=== PATIENT | female | born 1945 | race Caucasian/White ===

== ENCOUNTER → 2016-11-17 | Outpatient (CLI) | payer OTHER ==
[~2016-11-17] MED LIST: ASPI325T39 PO; BCTCR/30 EXT; CALCTAB7 PO; CHOL20007 PO; CITA20TA4 PO; CYAN10005 PO; FSMD/70 PO; GABA-112 PO; GLIM1TAB2 PO; LEVO88TA PO; LOSA50TA6 PO; LOVA20TA4 PO; MAGN400T6 PO; SITA50TA5 PO; TAMO20TA9 PO; TRAM-10 PO
[2016-11-17 13:09] LABS: COMPLETE YES; EOS % 2.2 %; HEMATOCRIT 41.3 % (37-47); IG% 0.2 %; LYMPH % 15.4 %; LYMPH ABS # 0.98 K/uL (1.2-3.4); MEAN CELL VOLUME 87.9 fL (80-100); MEAN CORPUSCULAR HEMOGLOBIN 27.9 pg (25-34); MEAN CORPUSCULAR HGB CONC 31.7 g/dl (32-36); MEAN PLATELET VOLUME 10.5 fL (7.4-10.4); MONO % 6.3 %; NEUT % 75.9 %; PLATELET COUNT 247 K/uL (130-400); WHITE BLOOD COUNT 6.36 K/uL (4.8-10.8)
[2016-11-17 13:20] LABS: ALT/SGPT 24 U/L (12-78); BLOOD UREA NITROGEN 18 mg/dl (7-18); BUN/CREATININE RATIO 23.2 (10-20); CARBON DIOXIDE 27 mmol/L (21-32); CHLORIDE 106 mmol/L (98-107); CREATININE 0.77 mg/dl (0.60-1.20); GLUCOSE 92 mg/dl (70-99); MAGNESIUM 1.7 mg/dl (1.8-2.4); POTASSIUM 4.3 mmol/L (3.5-5.1); SODIUM 139 mmol/L (136-145)
[2016-11-17 13:22] LABS: CALCIUM 10.4 mg/dl (8.5-10.1); CHOLESTEROL/HDL RATIO 2.8
[2016-11-17 13:30] LABS: ALB/GLOB RATIO 0.8 (0.9-2); ALKALINE PHOSPHATASE 49 U/L (45-117); AST/SGOT 14 U/L (15-37)
[2016-11-17 13:39] LABS: ESTIMATED AVERAGE GLUCOSE 146 mg/dl; HA1C FLAG Normal (Normal)
== END | disposition home or self-care (01) ==
LOC: C.LABMFLN 14:49
PROVIDERS: ATTEND Family Medicine
DX: E11.49 Type 2 diabetes mellitus with other diabetic neurological complication (principal); I10 Essential (primary) hypertension; E03.9 Hypothyroidism, unspecified; E53.8 Deficiency of other specified B group vitamins; M81.0 Age-related osteoporosis without current pathological fracture; E83.42 Hypomagnesemia

== ENCOUNTER → 2017-02-17 | Outpatient (CLI) | payer OTHER ==
[~2017-02-17] MED LIST changes: +TAMO20TA47 PO; -TAMO20TA9 PO
[2017-02-18 08:31] LABS: ESTIMATED AVERAGE GLUCOSE 157 mg/dl; HA1C FLAG Normal (Normal)
== END | disposition home or self-care (01) ==
LOC: C.LABMFLN 08:08
PROVIDERS: ATTEND Family Medicine
DX: E11.49 Type 2 diabetes mellitus with other diabetic neurological complication (principal)

== ENCOUNTER → 2017-06-06 | Outpatient (CLI) | payer OTHER ==
[~2017-06-06] MED LIST changes: -TAMO20TA47 PO; +TAMO20TA9 PO
[2017-06-06 12:57] LABS: COMPLETE YES; EOS % 1.8 %; HEMATOCRIT 41.9 % (37-47); IG% 0.2 %; LYMPH ABS # 0.83 K/uL (1.2-3.4); MEAN CELL VOLUME 87.8 fL (80-100); MEAN CORPUSCULAR HEMOGLOBIN 28.1 pg (25-34); MEAN PLATELET VOLUME 10.8 fL (7.4-10.4); MONO % 7.8 %; NEUT % 75.2 %; PLATELET COUNT 226 K/uL (130-400); RED BLOOD COUNT 4.77 M/uL (4.2-5.4); WHITE BLOOD COUNT 5.52 K/uL (4.8-10.8)
[2017-06-06 13:36] LABS: ALT/SGPT 18 U/L (12-78); BLOOD UREA NITROGEN 24 mg/dl (7-18); BUN/CREATININE RATIO 31.2 (10-20); CALCIUM 9.9 mg/dl (8.5-10.1); CARBON DIOXIDE 24 mmol/L (21-32); CHLORIDE 109 mmol/L (98-107); CHOLESTEROL 143 mg/dl (0-200); CREATININE 0.77 mg/dl (0.60-1.20); GLUCOSE 113 mg/dl (70-99); MAGNESIUM 1.5 mg/dl (1.8-2.4); SODIUM 142 mmol/L (136-145); TRIGLYCERIDES 66 mg/dl (0-150); VERY LOW DENSITY LIPOPROT CALC 13 mg/dl
[2017-06-06 13:45] LABS: ALB/GLOB RATIO 0.8 (0.9-2); ALKALINE PHOSPHATASE 50 U/L (45-117); AST/SGOT 16 U/L (15-37); CHOLESTEROL/HDL RATIO 2.8; HDL CHOLESTEROL 51 mg/dl; LDL CHOLESTEROL CALCULATED 79 mg/dl
[2017-06-06 13:50] LABS: ESTIMATED AVERAGE GLUCOSE 154 mg/dl; HA1C FLAG Normal (Normal)
== END | disposition home or self-care (01) ==
LOC: C.LABMFLN 09:12
PROVIDERS: ATTEND Family Medicine
DX: E11.49 Type 2 diabetes mellitus with other diabetic neurological complication (principal); E78.5 Hyperlipidemia, unspecified; E03.9 Hypothyroidism, unspecified; D51.8 Other vitamin B12 deficiency anemias; E83.42 Hypomagnesemia; M81.0 Age-related osteoporosis without current pathological fracture

== ENCOUNTER → 2017-09-20 | Outpatient (CLI) | payer OTHER ==
[2017-09-20 13:21] LABS: HEMOGLOBIN A1C 6.6 % (4.5-5.6)
== END | disposition home or self-care (01) ==
LOC: C.LABMFLN 07:50
PROVIDERS: ATTEND Family Medicine
DX: E11.49 Type 2 diabetes mellitus with other diabetic neurological complication (principal); I10 Essential (primary) hypertension; E53.8 Deficiency of other specified B group vitamins

== ENCOUNTER → 2018-03-02 | Outpatient (CLI) | payer OTHER ==
[2018-03-02 13:36] LABS: BLOOD UREA NITROGEN 18 mg/dl (7-18); CARBON DIOXIDE 28 mmol/L (21-32); CREATININE 0.86 mg/dl (0.60-1.20); GLUCOSE 126 mg/dl (70-99); POTASSIUM 4.2 mmol/L (3.5-5.1); SODIUM 141 mmol/L (136-145)
== END | disposition home or self-care (01) ==
LOC: C.LABMFLN 08:15
PROVIDERS: ATTEND Family Medicine
DX: I10 Essential (primary) hypertension (principal); E03.9 Hypothyroidism, unspecified

== ENCOUNTER 2021-07-21 13:23 | Inpatient (IN) ==
[2021-07-21] MEDS ORDERED: HYDROmorphone INJ 0.5 MG/0.5 ML SYR IV PRN (13:29)
[2021-07-21] MEDS ORDERED: SODIUM CHLORIDE 0.9% 500 ML IV STA (13:29)
[2021-07-21] MEDS ORDERED: ONDANSETRON INJ 2 MG/ML 2 ML VIAL IV STA (13:29)
--- NOTE | 2021-07-21 13:46 | Emergency Department Note ---
Impression & Plan Femoral neck fracture ED Provider Note NAME: RJ CHAMBERLAIN AGE: 75 SEX: F : 1945 ARRIVES VIA: Ambulance INFORMANT: Patient, ED PROVIDER(S): Kike Zepeda DO CHIEF COMPLAINT: Hip pain HPI: The patient is a 75-year-old female who presented to emergency department for an evaluation of left hip pain. The patient was seen in an outside facility. She was excepted at our facility and transferred via ALS because of left hip pain and left hip fracture. The patient was seen by Dr. Avila in the past for a right hip fracture. The patient was initially evaluated at [facility]. She requested to be transferred for our facility. She was accepted and was brought here by ALS. The patient was given Dilaudid and states her pain is significantly improved. I reviewed the patient's transfer paperwork reveals that she has a left femoral neck fracture. The patient states that she has isolated left hip pain. She denies having any back pain or chest pain. She has abdominal pain she denies having any headache or neck pain. The patient states pain is moderate to severe when she tries to ambulate or internally externally rotate her hip. ROS: See above HPI for pertinent positives & negatives. A total of 10 systems reviewed and were otherwise negative. PAST MEDICAL HISTORY: See Below PAST SURGICAL HISTORY: See Below FAMILY HISTORY: See Below SOCIAL HISTORY: See Below HOME MEDICATIONS: See Below ALLERGIES: See Below VITALS: See Below PHYSICAL EXAMINATION: GENERAL: Patient is awake alert in no acute distress patient is resting comfortably and showing no signs of anxiety EYES: The conjunctivae are clear. The pupils are round and reactive. EARS, NOSE, MOUTH AND THROAT: The nose is without any evidence of any deformity. Mucous membranes are moist. Tongue is midline. NECK: The neck is nontender and supple. RESPIRATORY: Normal respiratory effort is noted there is no evidence of wheezing rhonchi or rales CARDIOVASCULAR: Regular rate and rhythm noted there no murmurs rubs or gallops normal S1 normal S2. GASTROINTESTINAL: The abdomen is soft. Abdomen is nontender. MUSCULOSKELETAL/EXTREMITIES: The left lower extremity is mildly shortened. There is pain with any range of motion testing. Pulses are symmetric in both feet. SKIN: There is no obvious evidence of any rash. There are no petechiae, pallor or cyanosis noted. NEUROLOGIC: Patient is awake alert and oriented x3 MEDICAL DECISION MAKING: The patient is a 75-year-old female who presented to emergency department for an evaluation of left hip pain. The patient initially was seen medically in an outside emergency department. She wanted to come to our facility for surgical care because she had been treated in our facility before. The patient was sent to our emergency department by ALS. I did evaluate the patient. She was treated with pain medication. X-rays were repeated here at the request of orthopedics. I discussed her case with the on-call orthopedic group of the patient's choice as well as the on-call [facility] hospitalist. They have ag abdulaziz to evaluate the patient for further management and disposition. Triage Nursing notes reviewed. Prior medical records reviewed Vital Signs: reviewed and remarkable for elevated blood pressure. Differential diagnosis: Fracture, dislocation, neurovascular compromise, compartment syndrome, soft tissue injury, as well as other pathologies. ER treatment provided: See below Diagnostics interpreted by me: ECG: none Cardiac Monitoring: An order was placed for continuous cardiac monitoring. The monitor shows a rate of 81 bpm with sinus rhythm. Laboratory studies: As stated above and show below. Imaging studies: See below Consultation(s): I discussed this case with Dr. Hebert who is on-call for [facility]. They will evaluate the patient in the emergency department. I discussed this case with [place] who is on-call for the orthopedic group of the patient's choice. They will evaluate the patient in consultation for further surgical management. Past Med/Surg History Medical History (Updated 07/21/21 @ 18:40 by Kike Zepeda DO) Breast cancer Cutaneous lupus erythematosus History of colon cancer History of stroke 2007 left sided weakness Hx of adenomatous colonic polyps Sessile colonic polyp Type 2 diabetes mellitus Surgical History History of bowel resection History of cataract surgery History of colonoscopy History of right hip replacement History of tonsillectomy S/P breast biopsy Status post breast lumpectomy bilateral Family History Sister Myocardial infarction Brother Colorectal cancer Father Hypertension Aunt Cancer Denies family history of Ovarian cancer Prostate cancer Breast cancer Social History Smoking Status: Unknown if ever smoked Second Hand Exposure: No; Hx Alcohol Use: Yes Alcohol type: beer and wine Hx Substance Use: Yes Substance Use Type Other:: tramadol Preferred Language: [place] Communication Ability: Effective Visual Impairment: Partially Limited Hearing Ability: Normal Orthodontist Assistant Required: No Beliefs That Will Affect Care: None marital status: / Current Living Situation: Alone current occupational status: retired Feels Safe at Home: Yes Childhood Exposure to Second-Hand Smoke: Yes caffeine: Yes (1 cup daily of coffee) during the past year weight has: remained stable Dental Care, Regularly: No Physical Activity Frequency: Does not Exercise Seatbelt Use: never Sunscreen Use: No Do you think of yourself as: straight/heterosexual Allergies Allergies Allergy/AdvReac Type Severity Reaction Status Date / Time No Known Allergies Allergy Verified 07/21/21 15:24 Home Meds Previous Rx's Medication Instructions Recorded aspirin 325 mg tablet 325 mg PO DAILY #90 tab 02/27/19 cholecalciferol (vitamin D3) 50 4,000 units PO DAILY #180 cap 02/27/19 mcg (2,000 unit) capsule cyanocobalamin (vitamin B-12) 1,000 mcg PO DAILY #90 tab 02/27/19 1,000 mcg tablet triamcinolone acetonide 0.1 % 1 appln TOP BID PRN #80 gm 10/21/19 topical cream gabapentin 100 mg capsule 100 mg PO BID #180 cap 05/07/20 glimepiride 1 mg tablet 1 mg PO .COMPLEX #270 tab 07/01/20 linagliptin 2.5 mg-metformin 1,000 1 tab PO BID #180 tab 10/21/20 mg tablet levothyroxine 100 mcg tablet 100 mcg PO DAILY #90 tab 02/05/21 citalopram 40 mg tablet 40 mg PO DAILY #90 tab 04/19/21 tramadol 50 mg tablet 50 mg PO Q6H PRN #120 tab 05/18/21 lovastatin 20 mg tablet 20 mg PO HS #90 tab 05/31/21 metoprolol succinate 25 mg 25 mg PO DAILY #90 tab 05/31/21 tablet,extended release 24 hr Results & Data (ED) Vital Signs Vital Signs - 24 hr 07/21/21 13:21 07/21/21 13:30 07/21/21 15:41 Temperature 37.4 C Temperature Source Oral Pulse Rate 79 78 Pulse Rate [Apical] Respiratory Rate 18 18 18 Respiratory Effort / Characteristics Non-Labored Respiratory Depth Normal Respiratory Pattern Regular Blood Pressure 177/83 H 184/103 H Blood Pressure [Left Arm] Blood Pressure Mean 114 Blood Pressure Mean [Left Arm] Blood Pressure Position Lying Pulse Oximetry 93 93 93 Oxygen Delivery Method Room Air Room Air Room Air Sepsis Recent Fever Within 48 Hours No Sepsis New/Unexplained Change in Mental Status N/A Sepsis Action Taken by Nursing No Action Required 07/21/21 16:22 Temperature 37.2 C Temperature Source Oral Pulse Rate Pulse Rate [Apical] 81 Respiratory Rate 17 Respiratory Effort / Characteristics Non-Labored Spontaneous Respiratory Depth Normal Respiratory Pattern Blood Pressure Blood Pressure [Left Arm] 184/103 H Blood Pressure Mean Blood Pressure Mean [Left Arm] 130 Blood Pressure Position Pulse Oximetry 94 Oxygen Delivery Method Sepsis Recent Fever Within 48 Hours Sepsis New/Unexplained Change in Mental Status Sepsis Action Taken by Usp Medications Current Medication List: was personally reviewed by me Laboratory Data Attestation: I reviewed the patient's lab results. Lab Results 07/21/21 Range/Units 15:59 POC Glucose 113 H (70-99) mg/dl Administered Medications Discontinued Medications Bupivacaine HCl (Bupivacaine 0.25% 30 Ml Vial) Confirm Administered Dose 30 ml .ROUTE .STK-MED ONE Stop: 07/21/21 16:42 Last Admin: 07/21/21 18:15 Dose: 30 ml Documented by: [id number] Sodium Chloride (Nss) 500 mls @ 999 mls/hr IV .Q31M STA Stop: 07/21/21 13:59 Last Infusion: 07/21/21 14:31 Dose: 0 mls/hr Documented by: [id number] Admin: 07/21/21 13:43 Dose: 999 mls/hr Documented by: [id number] Cefazolin Sodium (Ancef 2000mg) 2,000 mg in 15 mls @ 3.75 mls/min IV PREOP ONE Stop: 07/21/21 16:18 Last Admin: 07/21/21 16:29 Dose: 3.75 mls/min Documented by: [id number] Ondansetron HCl (Ondansetron Inj 2 Mg/Ml 2 Ml Vial) 4 mg IV NOW STA Stop: 07/21/21 13:30 Last Admin: 07/21/21 14:31 Dose: Not Given Documented by: [id number] Imaging Data Radiologist's Impression: Hip/Pelvis X-Ray 07/21/21 13:53 XR hip LT 2V w pelvis CLINICAL HISTORY: fall TECHNIQUE: 2 views of the left hip and single frontal view of the pelvis were obtained. Comparison: None available at the time of this dictation. FINDINGS: There is a fracture of the left femoral neck, likely with an intertrochanteric component. Overriding of fragments is noted. A right total hip arthroplasty is seen. The alignment is anatomic. Joint spaces are well-preserved. No soft tissue abnormality is seen. IMPRESSION: Left femoral neck fracture. ACT 112: Negative or not required by law. Electronically signed by: Delta Lopez M.D. 07/21/2021 2:56 PM Discharge Plan Visit Data Chief Complaint: Hip Pain Stated Complaint: TRANSFER FROM [facility] ED Provider: Kike Zepeda Discharge Problem: Femoral neck fracture Patient Disposition: Being Evaluated by Hospitalist Discharge Instructions Interventions: ED Discharge Assessment Last Done: 07/21/21 15:41
--- NOTE | 2021-07-21 14:17 | History & Physical Report ---
Date of Service July 21, 2021 Assessment & Plan (1) Closed left hip fracture: Plan: pt with left femoral neck fracture will have surgical evaluation for repair. Patient has her prehospital work-up done at [facility] hopefully will have a chest x-ray and EKG to review prior to the procedure however at this time she does not have any significant cardiovascular risk factors nor physical complaints and she would BX acceptable operative risk at this time for repair of her hip fracture (2) Type 2 diabetes mellitus: Plan: will have oral medication held and have on basal bolus insulin (3) Hypertension: Plan: pt will continue on metoprolol and consider holding losartan on pod #1, resume later once hemodynamically stable (4) Depression: Plan: pt will continue on citaloparm (5) Hypothyroidism: Plan: synthroid 100mcg (6) Cutaneous lupus erythematosus: Plan: on topical steroids (7) DVT prophylaxis: Plan: scds until post operative stabilty History of Present Illness Primary Care Provider: Juanjo Connor MD 75-year-old female who is a transfer from [place] [facility] after evaluation of fall and left hip pain with a resultant fracture. Patient requested to come to [facility] due to previously repaired hip fracture by [facility]. Patient's pain is controlled when she is not moving. The ER evaluation suggest left femoral neck fracture. She is externally rotated and shortened with regard to her left leg. She denies any recent chest pain pressure shortness of breath feelings of palpitations or feelings of lower extremity edema. Has had no issues with increased bleeding bruising or lower extremity swelling Allergies Allergy/AdvReac Type Severity Reaction Status Date / Time No Known Allergies Allergy Verified 07/21/21 15:24 Home Medications Medication Instructions Recorded Confirmed Type aspirin 325 mg tablet 325 mg PO DAILY #90 tab 02/27/19 07/21/21 Rx cholecalciferol (vitamin D3) 50 4,000 units PO DAILY #180 cap 02/27/19 07/21/21 Rx mcg (2,000 unit) capsule cyanocobalamin (vitamin B-12) 1,000 mcg PO DAILY #90 tab 02/27/19 07/21/21 Rx 1,000 mcg tablet triamcinolone acetonide 0.1 % 1 appln TOP BID PRN #80 gm 10/21/19 07/21/21 Rx topical cream gabapentin 100 mg capsule 100 mg PO BID #180 cap 10/29/20 01/12/22 Rx glimepiride 1 mg tablet 1 mg PO .COMPLEX #270 tab 07/01/20 07/21/21 Rx linagliptin 2.5 mg-metformin 1,000 1 tab PO BID #180 tab 10/21/20 07/21/21 Rx mg tablet levothyroxine 100 mcg tablet 100 mcg PO DAILY #90 tab 02/05/21 07/21/21 Rx citalopram 40 mg tablet 40 mg PO DAILY #90 tab 04/19/21 07/21/21 Rx tramadol 50 mg tablet 50 mg PO Q6H PRN #120 tab 05/18/21 07/21/21 Rx lovastatin 20 mg tablet 20 mg PO HS #90 tab 05/31/21 07/21/21 Rx metoprolol succinate 25 mg 25 mg PO DAILY #90 tab 05/31/21 07/21/21 Rx tablet,extended release 24 hr Past Med/Surg History Medical History (Updated 07/21/21 @ 18:40 by Kike Zepeda DO) Breast cancer Cutaneous lupus erythematosus History of colon cancer History of stroke 2007 left sided weakness Hx of adenomatous colonic polyps Sessile colonic polyp Type 2 diabetes mellitus Surgical History History of bowel resection History of cataract surgery History of colonoscopy History of right hip replacement History of tonsillectomy S/P breast biopsy Status post breast lumpectomy bilateral Family History Sister Myocardial infarction Brother Colorectal cancer Father Hypertension Aunt Cancer Denies family history of Ovarian cancer Prostate cancer Breast cancer Social History Smoking Status: Unknown if ever smoked Second Hand Exposure: No; Hx Alcohol Use: Yes Alcohol type: beer and wine Hx Substance Use: Yes Substance Use Type Other:: tramadol Preferred Language: Uz[place] Communication Ability: Effective Visual Impairment: Partially Limited Hearing Ability: Normal 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 Beliefs That Will Affect Care: None marital status: / Current Living Situation: Alone current occupational status: retired Feels Safe at Home: Yes Childhood Exposure to Second-Hand Smoke: Yes caffeine: Yes (1 cup daily of coffee) during the past year weight has: remained stable Dental Care, Regularly: No Physical Activity Frequency: Does not Exercise Seatbelt Use: never Sunscreen Use: No Do you think of yourself as: straight/heterosexual Review of Systems Review of Systems: Mild to moderate distress and fatigue no headache, no visual changes no speech or swallowing issues no chest pain, pressure or palpitations no shortness of breath, cough or wheezes no abdominal pain, nausea or vomiting, diarrhea or constipation no dysuria, hematuria or frequency Pain to her left lateral hip no back pain, CVA tenderness or radicular pain no bruising, bleeding does have intertrigo below her pannus no focal signs of weakness or numbness or altered sensation no complaints of anxiety or depression.. Physical Exam Physical Exam: The patient appeared well nourished and normally developed. She is in pain with movement Vital signs as documented. Head exam is normocephalic atraumatic Neck is without JVD, thyromegaly, or carotid bruits. Lungs are clear to auscultation, no focal loss of breath sounds Cardiac exam, Rhythm is regular.. No murmurs, rubs or gallops. Abdominal exam reveals normal bowel sounds, soft non tender, no masses Extremities she is a externally rotated shortened left leg good distal sensation intact Neurologic exam is alert and oriented, no focal loss of strength or sensation Skin is without bruises or rashes Psychologically is without concerns for anxiety or depression.. Results & Data Results & Data ([facility]) Vital Signs (Past 12 Hours) Vital Signs Temp Pulse Resp BP Pulse Ox 07/21/21 13:30 18 93 07/21/21 13:21 99.3 F 79 18 177/83 H 93 PG Care Time/CCT Total # of Minutes Spent Total Time Spent with Patient: Total time spent is greater than 50% in coordination of care (as documented) at patient's floor/unit and/or counseling patient: Coding Level of Care Code 98402 Initial Inpt Care Lvl 3 Diagnoses Type 2 diabetes mellitus E11.9 Cutaneous lupus erythematosus L93.2 Depression F32.9 Hypothyroidism E03.9 Hypertension I10 DVT prophylaxis Z29.9 Closed left hip fracture S72.002A
--- NOTE | 2021-07-21 14:57 | XRay Report ---
XR hip LT 2V w pelvis CLINICAL HISTORY: fall TECHNIQUE: 2 views of the left hip and single frontal view of the pelvis were obtained. Comparison: None available at the time of this dictation. FINDINGS: There is a fracture of the left femoral neck, likely with an intertrochanteric component. Overriding of fragments is noted. A right total hip arthroplasty is seen. The alignment is anatomic. Joint space s are well-preserved. No soft tissue abnormality is seen. IMPRESSION: Left femoral neck fracture. ACT 112: Negative or not required by law. Electronically signed by: Delta Lopez M.D. 07/21/2021 2:56 PM
--- NOTE | 2021-07-21 15:34 | Orthopedic Consultation ---
Date of Consultation July 21, 2021 Assessment & Plan (1) Closed left hip fracture: Left displaced femoral neck fracture Case has been discussed with Dr. Hebert who is admitting the patient. He states that the patient is stable for surgery at this time. Her COVID test was negative at [facility]. X-rays have been reviewed by Dr. Garcia. Patient will require a bipolar hemiarthroplasty. Plans will be for hemiarthroplasty today. History of Present Illness Reason for Consultation: Left femoral neck fracture History of Present Illness Patient is a 75-year-old white female known to our practice who ended up having a mechanical fall today at home. Patient states that as she was ambulating it felt like her left leg gave out and she fell to the floor. She denies any shortness of breath, chest pain, lightheadedness prior to or after the fall. She denies bumping her head during the fall. She denies loss of consciousness. She was initially transported to [facility] where it was found that she had a left hip fracture patient requested transfer to [facility] for further treatment. She was then transported to [facility] ED where she was seen by [facility] physician group hospitalist staff. No x- rays had come with her and a hip and pelvis film was ordered. This confirmed fracture. She was thusly admitted for further care. We have been asked to take care of her left hip fracture. In speaking with her son, who is with her, he states that she had a CVA at some point in the past with some residual weakness in her left lower extremity. Allergies Allergy/AdvReac Type Severity Reaction Status Date / Time No Known Allergies Allergy Verified 07/21/21 15:24 Home Medications Medication Instructions Recorded Confirmed Type aspirin 325 mg tablet 325 mg PO DAILY #90 tab 02/27/19 07/21/21 Rx cholecalciferol (vitamin D3) 50 4,000 units PO DAILY #180 cap 02/27/19 07/21/21 Rx mcg (2,000 unit) capsule cyanocobalamin (vitamin B-12) 1,000 mcg PO DAILY #90 tab 02/27/19 07/21/21 Rx 1,000 mcg tablet triamcinolone acetonide 0.1 % 1 appln TOP BID PRN #80 gm 10/21/19 07/21/21 Rx topical cream gabapentin 100 mg capsule 100 mg PO BID #180 cap 05/07/20 07/21/21 Rx glimepiride 1 mg tablet 1 mg PO .COMPLEX #270 tab 07/01/20 06/17/21 Rx linagliptin 2.5 mg-metformin 1,000 1 tab PO BID #180 tab 10/21/20 07/21/21 Rx mg tablet levothyroxine 100 mcg tablet 100 mcg PO DAILY #90 tab 02/05/21 07/21/21 Rx citalopram 40 mg tablet 40 mg PO DAILY #90 tab 04/19/21 07/21/21 Rx tramadol 50 mg tablet 50 mg PO Q6H PRN #120 tab 05/18/21 07/21/21 Rx lovastatin 20 mg tablet 20 mg PO HS #90 tab 05/31/21 07/21/21 Rx metoprolol succinate 25 mg 25 mg PO DAILY #90 tab 05/31/21 07/21/21 Rx tablet,extended release 24 hr Patient History Medical History Cutaneous lupus erythematosus History of colon cancer History of stroke Hx of adenomatous colonic polyps Medicare annual wellness visit, subsequent Sessile colonic polyp Surgical History History of bowel resection History of cataract surgery History of colonoscopy History of right hip replacement History of tonsillectomy S/P breast biopsy Status post breast lumpectomy bilateral Family History Sister Myocardial infarction Brother Colorectal cancer Father Hypertension Aunt Cancer Denies family history of Ovarian cancer Prostate cancer Breast cancer Social History Smoking Status: Unknown if ever smoked Second Hand Exposure: No; Hx Alcohol Use: Yes Alcohol type: beer and wine Hx Substance Use: Yes Substance Use Type Other:: tramadol Preferred Language: [place] Communication Ability: Effective Visual Impairment: Partially Limited Hearing Ability: Normal Dross Puller Required: No Beliefs That Will Affect Care: None marital status: / Current Living Situation: Alone current occupational status: retired Feels Safe at Home: Yes Childhood Exposure to Second-Hand Smoke: Yes caffeine: Yes (1 cup daily of coffee) during the past year weight has: remained stable Dental Care, Regularly: No Physical Activity Frequency: Does not Exercise Seatbelt Use: never Sunscreen Use: No Do you think of yourself as: straight/heterosexual Physical Exam Physical Exam: On exam, the patient is a 75-year-old obese, white female who is awake and alert. Oriented x3. Pleasant cooperative. No acute distress. On examination of her left lower extremity, it is mildly shortened and externally rotated compared to the right. No range of motion is done with the left hip secondary to fracture. She is nontender at the left knee as well as ankle. She has good range of motion of her left ankle at this time without discomfort. There is no overt ecchymosis or abrasions noted over the lateral hip and she is mildly tender on palpation. Right lower extremity is within normal limits as far as range of motion and is nontender at the hip, knee, and ankle. Upper extremities are nontender at the shoulders, elbows, and wrists. Range of motion appears to be within normal limits. Distal pulses are equal lat erally of the upper and lower extremities. There is no gross motor or sensory loss seen at this time. She denies any cervical, thoracic, lumbar pain at this time. Results & Data ([facility]) Vital Signs (Past 12 Hours) Vital Signs Temp Pulse Resp BP Pulse Ox 07/21/21 13:30 18 93 07/21/21 13:21 37.4 C 79 18 177/83 H 93 Diagnostic Findings Patient:RJ CHAMBERLAIN Admit Date:07/21/21 MR#:[id number] Address1:[address] [place] [address] Acct ID:[id number] Address2: Date:1945 [facility] Zip:[place] [address] Age:75 Location:ED Sex:F Room/Bed: Att Phy: Diagnosis:TRANSFER FROM [facility] Phy:Juanjo Connor MD Service Date:07/21/21 [facility] Phy: Interpreting Phy:Delta Lopez MDAdmit Phy: Ordering Phy:Kike Zepeda DO cc: ~ XR hip LT 2V w pelvis CLINICAL HISTORY: fall TECHNIQUE: 2 views of the left hip and single frontal view of the pelvis were obtained. Comparison: None available at the time of this dictation. FINDINGS: There is a fracture of the left femoral neck, likely with an intertrochanteric component. Overriding of fragments is noted. A right total hip arthroplasty is seen. The alignment is anatomic. Joint spaces are well-preserved. No soft tissue abnormality is seen. IMPRESSION: Left femoral neck fracture.
[2021-07-21] MEDS ORDERED: MIDAZOLAM HCL 1 MG/ML 2ML VIAL ONE (15:55)
[2021-07-21] MEDS ORDERED: fentaNYL citrate 100 MCG/2 ML VIAL ONE (15:56)
--- NOTE | 2021-07-21 16:00 | Anesthesiology Consultation ---
Date of Service July 21, 2021 Assessment & Plan (1) Encounter for pre-operative examination: Chart Review Chart Review: Acceptable Risk for Surgery (necessary surgery) and Patient NOT seen in Pre Admission Testing Consults Requested none History Surgery Operation Date: 07/21/21 08:20 Proposed Procedures p Left Bipolar Hemiarthroplasty - Christian Garcia DO Height/Weight Height: 5 ft 5 in Weight: 118.8 kg Allergies Allergy/AdvReac Type Severity Reaction Status Date / Time No Known Allergies Allergy Verified 07/21/21 15:24 Medications Home Medications Medication Instructions Recorded Confirmed Last Taken aspirin 325 mg tablet 325 mg PO DAILY #90 tab 02/27/19 07/21/21 Unknown cholecalciferol (vitamin D3) 50 4,000 units PO DAILY #180 cap 02/27/19 07/21/21 Unknown mcg (2,000 unit) capsule cyanocobalamin (vitamin B-12) 1,000 mcg PO DAILY #90 tab 02/27/19 07/21/21 Unknown 1,000 mcg tablet triamcinolone acetonide 0.1 % 1 appln TOP BID PRN #80 gm 10/21/19 07/21/21 Unknown topical cream gabapentin 100 mg capsule 100 mg PO BID #180 cap 05/07/20 07/21/21 Unknown glimepiride 1 mg tablet 1 mg PO .COMPLEX #270 tab 07/01/20 07/21/21 Unknown linagliptin 2.5 mg-metformin 1,000 1 tab PO BID #180 tab 10/21/20 07/21/21 Unknown mg tablet levothyroxine 100 mcg tablet 100 mcg PO DAILY #90 tab 02/05/21 07/21/21 Unknown citalopram 40 mg tablet 40 mg PO DAILY #90 tab 04/19/21 07/21/21 Unknown tramadol 50 mg tablet 50 mg PO Q6H PRN #120 tab 05/18/21 07/21/21 Unknown lovastatin 20 mg tablet 20 mg PO HS #90 tab 05/31/21 07/21/21 Unknown metoprolol succinate 25 mg 25 mg PO DAILY #90 tab 05/31/21 07/21/21 Unknown tablet,extended release 24 hr Past Medical History Medical History (Updated 07/21/21 @ 16:25 by Elliot Small MD) Breast cancer Cutaneous lupus erythematosus History of colon cancer History of stroke 2007 left sided weakness Hx of adenomatous colonic polyps Sessile colonic polyp Type 2 diabetes mellitus Past Family History Family History Sister Myocardial infarction Brother Colorectal cancer Father Hypertension Aunt Cancer Denies family history of Ovarian cancer Prostate cancer Breast cancer Past Surgical History Surgical History History of bowel resection History of cataract surgery History of colonoscopy History of right hip replacement History of tonsillectomy S/P breast biopsy Status post breast lumpectomy bilateral Social History Smoking Status: Unknown if ever smoked Hx Alcohol Use: Yes Alcohol type: beer and wine Hx Substance Use: Yes substance use type: opiates and prescription drug Substance Use Type Other:: tramadol Physical Exam Vital Signs Last Vital Signs Temp 37.4 C 07/21/21 13:21 Pulse 78 07/21/21 15:41 Resp 18 07/21/21 15:41 BP 184/103 H 07/21/21 15:41 Pulse Ox 93 07/21/21 15:41 Testing Laboratory Results Labs from [facility] 07/21/21 Covid 19 negative WBC 6.71 Hgb 13.3 Plt 20 INR 1.22 BUN 17 Cr 0.8 NA 140 K 4.2 Cl 104 CO2 25 AG 11 gluocse 148 Ca 10 Electrocardiogram Date: 07/21/21 Findings: + NSR @ (78) and + NSST changes Chest X-Ray Date: 07/21/21 tortuous thoracic aorta, mild prominence left hilum, 5 mm left upper lung nodule, calcified 2.8 cm lesion over left breast tissue
[2021-07-21] MEDS ORDERED: LIDOCAINE 2% 2 ML VIAL/AMP(20MG/ML) INFIL ONE (16:01)
[2021-07-21] MEDS ORDERED: PROPOFOL IV EMULSION 10 MG/ML 20 ML VIAL IV ONE (16:01)
[2021-07-21] MEDS ORDERED: ePHEDrine sulfate 50 MG/ML SYR ONE (16:01)
[2021-07-21] MEDS ORDERED: LABETALOL HCL IV 5 MG/ML 20ML IV PRN (16:05)
[2021-07-21] MEDS ORDERED: HYDROmorphone INJ 1 MG/ML SYRINGE IV PRN (16:05)
[2021-07-21] MEDS ORDERED: fentaNYL citrate 100 MCG/2 ML VIAL IV PRN (16:05)
[2021-07-21] MEDS ORDERED: BUPIVACAINE 0.5 % 5 MG/1 ML PF 10ML VIAL ONE (16:05)
[2021-07-21] MEDS ORDERED: ONDANSETRON INJ 2 MG/ML 2 ML VIAL IV PRN ×2 (16:05→20:18)
[2021-07-21] MEDS ORDERED: ePHEDrine sulfate 50 MG/ML AMP IV PRN (16:05)
[2021-07-21] MEDS ORDERED: MEPERIDINE HCL 25 MG/ML CARP/VIAL IV PRN (16:05)
[2021-07-21] MEDS ORDERED: ATROPINE SULFATE 0.1 MG/ML 10ML SYR IV PRN (16:05)
[2021-07-21] MEDS ORDERED: PHENYLEPHRINE 100MCG/ML 5ML SYR IV PRN (16:05)
[2021-07-21] MEDS ORDERED: ceFAZolin 2000MG 2,000 MG/15 ML SYR IV ONE (16:15)
--- NOTE | 2021-07-21 16:15 | History & Physical Bridge Note ---
Date of Service July 21, 2021 History & Physical Bridge Note I have examined the patient, reviewed the History & Physical and in the interval since the performance of the History & Physical I have noted the following changes of clinical significance: no changes noted. Discussed with patient and her son risk benefits potential complications of left hip hemiarthroplasty and they are in agreement with the procedure and written consent was obtained. We will plan for OR this afternoon.
[2021-07-21] MEDS ORDERED: BUPIVACAINE 0.25% 30 ML VIAL ONE (16:41)
--- NOTE | 2021-07-21 18:04 | Post Operative Brief Note ---
Immediate Post Op Note v1 Date of Surgery July 21, 2021 Pre & Post Diagnosis Operation Date: 07/21/21 08:20 Pre-Op Diagnosis: Left displaced femoral neck fracture Post-Op Diagnosis: Left displaced femoral neck fracture I identified the patient and participated in the time-out.: Yes Procedure Operation Date: 07/21/21 08:20 Actual Procedures p Left Hip Bipolar Hemiarthroplasty(Left) - Christian Garcia DO Surgeon Christian Garcia DO Service Team Leader German Comer PAC Estimated Blood Loss 100 Findings Consistent with Post-Op Diagnosis See dictation Complications None
--- NOTE | 2021-07-21 18:14 | Operative Report ---
Post Operative Report Pre & Post Diagnosis Operation Date: 07/21/21 08:20 Pre-Op Diagnosis: Left displaced femoral neck fracture Post-Op Diagnosis: Left displaced femoral neck fracture I identified the patient and participated in the time-out.: Yes Procedure Operation Date: 07/21/21 08:20 Actual Procedures p Left Hip Bipolar Hemiarthroplasty(Left) - Christian Garcia DO Surgeon Christian Garcia DO Keyboard Operator German Comer PAC Estimated Blood Loss 100 Findings Consistent with Post-Op Diagnosis Displaced left transcervical femoral neck fracture Specimens Femoral neck Indications 75-year-old female who presented to [facility] as a transfer from [facility] after sustaining a ground-level fall onto her left hip. Immediately afterward she noted pain and deformity and was unable to ambulate. Radiographs were obtained demonstrating a completely displaced left transcervica l femoral neck fracture. Preoperatively I met with the patient and we do lengthy discussion regarding risk benefits potential complications of left hip hemiarthroplasty. After reviewing these she elected to proceed with surgical intervention and written consent was obtained. Description of Procedure Due to the patient's morbid obesity additional time was spent positioning as well as with surgical exposure and retraction leading to increased operative time and requiring extra assistance. Patient was appropriately marked and identified in the preoperative holding area. She was then taken back to the operative suite where she received Ancef per protocol. She received spinal anesthesia and then was transferred over to the regular OR table where she was positioned in the lateral decubitus position with the left hip facing upwards using Stulberg positioners. She was then prepped and draped in the standard orthopedic fashion and timeout was then performed. A posterior lateral incision overlying the greater trochanter was then made using a scalpel. Electrocautery was used to dissect through subcutaneous tissue down to the IT band and gluteal fascia which was cleared using a Burr elevator. Fascia was then split in line with the incision and a Charnley retractor was placed. Double bent Hohmann was then placed under the gluteus medius and minimus tendon complex. Short external rotators and piriformis were identified and tagged and then reflected off the posterior capsule. A T capsulotomy was then performed and a gush of intra capsular hematoma was noted. The hip was then internally rotated leaving the residual femoral head and the acetabular socket. A femoral neck osteotomy was then made using a reciprocating saw approximately 1 cm above the tip of the lesser trochanter. Any residual neck fragments were then removed. Tension was then turned to removal of the femoral head which was removed using a corkscrew and a sled. The femoral head was then sized on the back table and trialing a femoral head components was then performed a 49 mm outside diameter head was noted to have good suction fit and stability. Retractors were then removed and femoral neck elevator was placed and a box osteotome was used to open the proximal aspect of the canal followed by a canal finding reamer. The canal was then sequentially broached up to a size #6 stem which had good fit and fill. A 127 degree neck angle was then placed and a 49 mm -3 bipolar femoral head the hip was successfully reduced. Leg lengths were noted to be satisfactory as well as range of motion and stability. The hip was then dislocated and trial components were then removed. Wound was then soaked with dilute Betadine solution for several minutes then then was copiously irrigated. A [place] Accolade 127 degree neck angle size #6 stem was then impacted into the femoral canal under visualization of the calcar. The trunnion was then copiously irrig ated and dried and a 49 mm universal bipolar femoral head component with a -3 mm offset was then impacted onto the trunnion with several brisk taps. Acetabulum was once again copiously irrigated and checked that there was no interposing bone fragments or soft tissue and the hip was successfully relocated. Once again range of motion stability and leg lengths were all assessed and noted to be satisfactory. Wound was then copiously irrigated and the capsule was closed in a [id number] fashion using a 1-0 Ethibond suture. Piriformis was then repaired back to the tip of the trochanter using a soft tissue repair with a 1-0 Ethibond suture. The IT band and gluteal fascia was then closed in a [id number] fashion using 1-0 Ethibond followed by running oh V-Loc suture to provide a watertight closure. Local anesthetic was then injected into the IT band and surrounding subcutaneous tissue. Subcutaneous tissue was then closed using 2-0 Vicryl suture followed by ganesh for the skin. Skin was then painted with a ChloraPrep applicator and a sterile Silverlon dressing was then placed. The patient tolerated the procedure well and was taken to the recovery room in hemodynamically stable condition. German Comer PAC was present and assisted with patient positioning as well as retraction soft tissue management as well as closure. I attest to the content of the Intraoperative Record and any orders documented therein. Any exceptions are noted below.
--- NOTE | 2021-07-21 19:00 | XRay Report ---
XR hip 1V LT w pelvis HISTORY: 75 years-old Female IN PACU - A/P PELVIS and LATERAL HIP left hip total joint arthroplasty COMPARISON: Pelvis and hip radiographs of same day at 2:22 PM TECHNIQUE: Supine AP view of the pelvis with crosstable lateral view of the left hip FINDINGS: Right hip total joint arthroplasty with adjacent heterotopic ossifications redemonstrated. Left hip t otal joint arthroplasty appears to be in satisfactory positioning. Extensive postoperative soft tissu e swelling with deep tissue air an overlying skin ganesh. Arterial calcifications. No acute fracture or unexpected opaque foreign body identified. IMPRESSION: Left hip total joint arthroplasty with expected postoperative changes. ACT 112: Negative or not required by law. The above report was generated using voice recognition software. It may contain grammatical, syntax o r spelling errors. Electronically signed by: Christian Centeno M.D. 07/21/2021 6:58 PM
--- NOTE | 2021-07-21 19:06 | XRay Report ---
XR chest 1V portable HISTORY: 75 years-old Female pre op preoperative exam. No acute chest complaints. Left hip total hortencia nt arthroplasty COMPARISON: Chest radiograph 10/15/2013 TECHNIQUE: Supine AP view of the chest FINDINGS: Unchanged right hilar/suprahilar opacity which is stable from the 2014 comparison and possibly repres entative of asymmetric pulmonary vasculature. Mild chronic interstitial coarsening. No pneumothorax, large pleural effusion or overt pulmonary edema. Cardiomegaly. Degenerative changes of the shoulders and spine. A biopsy clip projects of the left breast with a 2.5 cm peripherally calcified structure. Surgical clips also project over the right axilla. IMPRESSION: Chronic findings as above without acute process. ACT 112: Negative or not required by law. The above report was generated using voice recognition software. It may contain grammatical, syntax o r spelling errors. Electronically signed by: Christian Centeno M.D. 07/21/2021 7:04 PM
--- NOTE | 2021-07-21 20:01 | Anesthesiology Progress Note ---
Date of Service July 21, 2021 Anesthesia Post Procedure Vital Signs Vital Signs: Temp Pulse Pulse Resp BP BP Pulse Ox 07/21/21 19:30 81 18 149/75 H 93 07/21/21 19:20 80 20 131/68 93 07/21/21 19:10 85 22 126/80 94 07/21/21 19:00 36.5 C 85 16 131/76 94 07/21/21 18:50 85 20 133/75 98 07/21/21 18:40 82 20 133/66 100 07/21/21 18:30 36.5 C 82 20 117/65 100 07/21/21 16:22 37.2 C 81 17 184/103 H 94 07/21/21 15:41 78 18 184/103 H 93 07/21/21 13:30 18 93 07/21/21 13:21 37.4 C 79 18 177/83 H 93 Pain Intensity Left Hip: Pain Intensity: 1 Transfer of Care Handoff Completed per policy Notes Mental Status: alert / awake / arousable and participated in evaluation Patient Amnestic to Procedure: Yes Nausea / Vomiting: adequately controlled Pain: adequately controlled Airway Patency, RR, SpO2: stable & adequate BP & HR: stable & adequate Hydration State: stable & adequate Anesthetic Complications: no major complications apparent and Pt Satisfied with anesthetic care
[2021-07-21] MEDS ORDERED: GLUCAGON FOR INJ 1 MG VIAL SQ PRN (20:18)
[2021-07-21] MEDS ORDERED: CARBOHYDRATES FOR HYPOGLYCEMIA PO PRN (20:18)
[2021-07-21] MEDS ORDERED: LACTATED RINGER'S 1,000 ML IV SCH (20:18)
[2021-07-21] MEDS ORDERED: SODIUM CHLORIDE 0.9% 1000ML 1,000 ML IV SCH (20:18)
[2021-07-21] MEDS ORDERED: GLUCOSE 10 TABS/TUBE PO PRN (20:18)
[2021-07-21] MEDS ORDERED: ACETAMINOPHEN 325 MG TAB PO PRN (20:18)
[2021-07-21] MEDS ORDERED: ALUMINUM/MAGNESIUM SUSP 30 ML UDC PO PRN (20:18)
[2021-07-21] MEDS ORDERED: bisacodyL 10 MG SUPP PR PRN (20:18)
[2021-07-21] MEDS ORDERED: DESONIDE CR 15 GM TUBE EXT PRN (20:18)
[2021-07-21] MEDS ORDERED: DEXTROSE 50% 50 ML SYRINGE IV PRN (20:18)
[2021-07-21] MEDS ORDERED: NALOXONE HCL 0.4 MG/1 ML VIAL/CARP IV PRN ×2 (20:18)
[2021-07-21] MEDS ORDERED: GLUCOSE 40% GEL 15 GM TUBE PO PRN (20:18)
[2021-07-21] MEDS ORDERED: MAGNESIUM HYDROXIDE SUSP 30 ML UDC PO PRN (20:18)
[2021-07-21] MEDS ORDERED: oxyCODONE HCL IR 5 MG TAB (IMMEDIATE RELEASE) PO PRN ×2 (20:18)
[2021-07-21] MEDS ORDERED: TRANEXAMIC ACID / 0.7% NACL 1,000 MG/100 ML BAG IV SCH ×2 (20:30→21:00)
[2021-07-21] MEDS ORDERED: ceFAZolin 2000MG 2,000 MG/15 ML SYR IV SCH (20:30)
[2021-07-21] MEDS ORDERED: SENNA 8.6 MG TAB PO SCH (21:00)
[2021-07-21] MEDS ORDERED: DOCUSATE SODIUM 100 MG CAP PO SCH (21:00)
[2021-07-21] MEDS: LOVASTATIN 20 MG TAB PO SCH (21:29)
[2021-07-21] MEDS: DOCUSATE SODIUM/SENNA 50/8.6MG TAB PO SCH (21:29)
[2021-07-21] MEDS: GABAPENTIN 100 MG CAP PO SCH (21:29)
[2021-07-21] MEDS: ACETAMINOPHEN 500 MG TAB PO SCH (21:30)
[2021-07-21] MEDS: HYDROmorphone INJ 0.5 MG/0.5 ML SYR IV PRN (21:32)
[2021-07-21] MEDS: INSULIN ASPART PER UNIT SC SCH ×2 (22:28→22:35)
[2021-07-22] MEDS: ceFAZolin 2000MG 2,000 MG/15 ML SYR IV SCH ×2 (00:33→08:17)
[2021-07-22] MEDS: HYDROmorphone INJ 0.5 MG/0.5 ML SYR IV PRN (03:55)
[2021-07-22] MEDS: LEVOTHYROXINE SODIUM 100 MCG TABLET PO SCH (05:40)
[2021-07-22] MEDS: ACETAMINOPHEN 500 MG TAB PO SCH ×3 (05:40→21:15)
[2021-07-22 07:33] LABS: Eosinophils # (auto) 0.02 K/uL (0-0.5); Eosinophils % (auto) 0.3 %; Hematocrit (blood only) 34.9 % (37-47); Immature Granulocytes # (auto) 0.01 K/uL (0.00-0.02); Immature Granulocytes % (auto) 0.2 %; Lymphocytes % (auto) 10.6 %; Mean Corpuscular Hemoglobin 28.6 pg (25-34); Mean Corpuscular Hgb Conc 31.5 g/dL (32-36); Mean Corpuscular Volume 90.9 fL (80-100); Mean Platelet Volume 10.2 fL (7.4-10.4); Monocytes # (auto) 0.58 K/uL (0.11-0.59); Monocytes % (auto) 8.7 %; Neutrophils # (auto) 5.32 K/uL (1.4-6.5); Neutrophils % (auto) 80.2 %; Platelet Count 189 K/uL (130-400); RDW Coefficient of Variation 13.8 % (11.5-14.5); RDW Standard Deviation 45.7 fL (36.4-46.3); Red Blood Count 3.84 M/uL (4.2-5.4); White Blood Count 6.63 K/uL (4.8-10.8)
[2021-07-22 08:03] LABS: BUN Creatinine Ratio 22.4 (10-20); Calcium 8.9 mg/dl (8.5-10.1); Creatinine Clr Calc Pharmacy 84.1 ml/min; Est GFR (African American) 89.6 ml/min; Est GFR (Non-African American) 77.3 ml/min; Potassium 4.1 mmol/L (3.5-5.1)
[2021-07-22] MEDS: CITALOPRAM 40 MG TAB PO SCH (08:11)
[2021-07-22] MEDS: METOPROLOL SUCC 25MG EXT REL TAB PO SCH (08:11)
[2021-07-22] MEDS: GABAPENTIN 100 MG CAP PO SCH ×2 (08:11→21:15)
[2021-07-22] MEDS: MULTIVITAMIN TAB PO SCH (08:11)
[2021-07-22] MEDS: INSULIN ASPART PER UNIT SC SCH ×4 (08:16→21:25)
[2021-07-22] MEDS: traMADol HCL 50 MG TABLET PO PRN ×3 (09:22→21:13)
--- NOTE | 2021-07-22 09:23 | Orthopedic Progress Note ---
Date of Service July 22, 2021 Assessment & Plan (1) Closed left hip fracture: Plan: POD 1 s/p Left Bipolar Hemiarthroplasty PT/OT protocol. WBAT. DVT prophylaxis - ASA bid, SCD's, DIANA's Pain managment as written. DC planning - May need [facility] prior to dc. Admission and Anticipated Discharge Date Admission Date: July 21, 2021 Subjective POD 1 Pt sitting up in bed sleeping. Easily awoken. No complaints currently. Pain controlled. Asking for Tramadol instead of Oxycodone secondary to nausea issues with latter. No other concerns. Physical Exam Physical Exam: Silverlon intact. Thigh nontender. Calves soft, NT. NV intact. Toes mobile. Hip appears located. Results & Data ([facility]) Vital Signs (Past 12 Hours) Vital Signs Temp Pulse Pulse Resp BP BP Pulse Ox 07/22/21 07:05 36.9 C 74 18 135/65 94 07/22/21 03:01 36.8 C 74 16 132/72 92 07/21/21 22:40 36.8 C 85 16 156/79 H 90 07/21/21 21:40 36.9 C 76 16 121/69 91 Laboratory Results Laboratory Results WBC 6.63 K/uL (4.8-10.8) 07/22/21 07:10 RBC 3.84 M/uL (4.2-5.4) L 07/22/21 07:10 Hgb 11.0 g/dL (12.0-16.0) L 07/22/21 07:10 Hct 34.9 % (37-47) L 07/22/21 07:10 MCV 90.9 fL (80-100) 07/22/21 07:10 MCH 28.6 pg (25-34) 07/22/21 07:10 MCHC 31.5 g/dL (32-36) L 07/22/21 07:10 RDW Std Deviation 45.7 fL (36.4-46.3) 07/22/21 07:10 RDW Coeff of Ro 13.8 % (11.5-14.5) 07/22/21 07:10 Plt Count 189 K/uL (130-400) 07/22/21 07:10 MPV 10.2 fL (7.4-10.4) 07/22/21 07:10 Immature Gran % (Auto) 0.2 % 07/22/21 07:10 Neut % (Auto) 80.2 % 07/22/21 07:10 Lymph % (Auto) 10.6 % 07/22/21 07:10 Eaton % (Auto) 8.7 % 07/22/21 07:10 Eos % (Auto) 0.3 % 07/22/21 07:10 Baso % (Auto) 0.0 % 07/22/21 07:10 Neut # (Auto) 5.32 K/uL (1.4-6.5) 07/22/21 07:10 Lymph # (Auto) 0.70 K/uL (1.2-3.4) L 07/22/21 07:10 Eaton # (Auto) 0.58 K/uL (0.11-0.59) 07/22/21 07:10 Eos # (Auto) 0.02 K/uL (0-0.5) 07/22/21 07:10 Baso # (Auto) 0.00 K/uL (0-0.2) 07/22/21 07:10 Immature Gran # (Auto) 0.01 K/uL (0.00-0.02) 07/22/21 07:10 Sodium 136 mmol/L (136-145) 07/22/21 07:10 Potassium 4.1 mmol/L (3.5-5.1) 07/22/21 07:10 Chloride 105 mmol/L (98-107) 07/22/21 07:10 Carbon Dioxide 26 mmol/L (21-32) 07/22/21 07:10 Anion Gap 5 (3-11) 07/22/21 07:10 BUN 17 mg/dl (6-23) 07/22/21 07:10 Creatinine 0.76 mg/dl (0.6-1.2) 07/22/21 07:10 Est Cr Clr Drug Dosing 84.1 ml/min 07/22/21 07:10 Est GFR ( Amer) 89.6 ml/min 07/22/21 07:10 Est GFR (Non-Af Amer) 77.3 ml/min 07/22/21 07:10 BUN/Creatinine Ratio 22.4 (10-20) H 07/22/21 07:10 Glucose 170 mg/dl (70-99) H 07/22/21 07:10 POC Glucose 162 mg/dl (70-99) H 07/22/21 08:05 Calcium 8.9 mg/dl (8.5-10.1) 07/22/21 07:10 SARS-CoV-2, RNA, NAAT NEGATIVE (NEGATIVE) 07/21/21 22:15 Blood Type O Negative 07/21/21 20:32 Antibody Screen NEGATIVE 07/21/21 20:32 Impressions Hip/Pelvis X-Ray 07/21/21 18:35 XR hip 1V LT w pelvis HISTORY: 75 years-old Female IN PACU - A/P PELVIS and LATERAL HIP left hip total joint arthroplasty COMPARISON: Pelvis and hip radiographs of same day at 2:22 PM TECHNIQUE: Supine AP view of the pelvis with crosstable lateral view of the left hip FINDINGS: Right hip total joint arthroplasty with adjacent heterotopic ossifications redemonstrated. Left hip total joint arthroplasty appears to be in satisfactory positioning. Extensive postoperative soft tissue swelling with deep tissue air an overlying skin ganesh. Arterial calcifications. No acute fracture or unexpected opaque foreign body identified. IMPRESSION: Left hip total joint arthroplasty with expected postoperative changes. ACT 112: Negative or not required by law. The above report was generated using voice recognition software. It may contain grammatical, syntax or spelling errors. Electronically signed by: Christian Centeno M.D. 07/21/2021 6:58 PM
[2021-07-22 09:33] LABS: Estimated Average Glucose 140 mg/dl; Hemoglobin A1C 6.5 % (4.5-5.6)
--- NOTE | 2021-07-22 12:18 | Hospitalist Progress Note ---
Date of Service July 22, 2021 Assessment & Plan (1) Closed left hip fracture: Plan: - pt with left femoral neck fracture s/p bipolar hemiarthroplasty pod#1 - orthopedics following, pain medications changed from oxy to tramadol per pt's request - recommend hourly use of incentive spirometer for atelectasis/pna prevention - will remove porter today - oob w/ assistance - PT/OT services - anticipate need for acute rehab following this hospitalization prior to return ing home (lives alone) - dvt ppx as outlined below - case management consult for d/c planning (2) Type 2 diabetes mellitus: Plan: - oral medications on hold - continued on her basal insulin - diabetic diet as ordered - accuchecks AC and HS - sliding scale insulin for glycemic correction (3) Hypertension: Plan: - continue metoprolol and losartan - losartan dosing is BID and was held this AM d/t spinal anesthesia - ok to resume losartan this evening (4) Depression: Plan: - continue citalopram (5) Hypothyroidism: Plan: - continue synthroid 100mcg (6) Cutaneous lupus erythematosus: Plan: - on topical steroids (7) DVT prophylaxis: Plan: - h/o breast ca and colon ca, no active malignancy to my knowledge - would recommend post op dvt ppx x 30-35 days - she is obese which puts her at increased risk - will place on xarelto 10mg daily Plan: Follow up labs in AM. Remove porter this afternoon. Case management for d/c planning -- anticipate need for acute rehab. Admission and Anticipated Discharge Date Admission Date: July 21, 2021 Subjective Patient seen on rounds this morning. She is resting comfortably on edge of bed and ambulating with assistance of OT, SEXUAL ASSAULT COUNSELOR, and wheeled walker to the bedside chair. She is POD#1 from bipolar hemiarthroplasty of L hip due to fracture. She reported no pain at rest, after ambulating pain 3/10. She denies chest pain, dyspnea, n/v/d, f/c, headache, or gu symptoms. Porter catheter still in place. No BM yet since surgery. Tolerating oral intake. Review of Systems Review of Systems: CONSTITUTIONAL: Denies weight loss/gain, fever and chills, fatigue, malaise, generalized weakness. HEENT: Denies changes in vision and hearing. RESPIRATORY: Denies SOB, cough, wheezing. CV: Denies palpitations, CP, lower extremity edema, orthopnea, PND. GI: Denies abdominal pain, nausea, vomiting and diarrhea. : +porter. MUSCULOSKELETAL: +L hip pain 3/10. SKIN: Denies rash and pruritus. NEUROLOGICAL: Denies headache, syncope, focal weakness, numbness, tingling. PSYCHIATRIC: Denies recent changes in mood. Denies anxiety and depression. Physical Exam Physical Exam: GENERAL: 75 yo morbidly obese elderly WF. Pleasant, cooperative. NAD. LUNGS: Clear to auscultation bilaterally. No accessory muscle use. No W/R/R. CARDIOVASCULAR: Regular rate and rhythm. No M/G/R. No JVD. ABDOMEN: Soft, nontender, normal BS x 4 quad. EXTREMITIES: No edema. Non-tender. Peripheral pulses +2/4. NEUROLOGIC: A&O x3. PSYCHIATRIC: Cooperative. Appropriate mood and affect. SKIN: Warm, dry, intact. No rashes or lesions. Results & Data Results & Data ([facility]) Vital Signs (Past 12 Hours) Vital Signs Temp Pulse Resp BP BP Pulse Ox 07/22/21 11:22 37.5 C 64 16 155/72 H 92 07/22/21 07:05 36.9 C 74 18 135/65 94 07/22/21 03:01 36.8 C 74 16 132/72 92 Laboratory Results 07/22/21 07:10 07/22/21 07:10 PG Care Time/CCT Total # of Minutes Spent Total Time Spent with Patient: Total time spent is greater than 50% in coordination of care (as documented) at patient's floor/unit and/or counseling patient: Coding Level of Care Code 57586 Subseq Hosp Care Lvl 2 Diagnoses Closed left hip fracture S72.002A Type 2 diabetes mellitus E11.9 Hypertension I10 Depression F32.9 Hypothyroidism E03.9 Cutaneous lupus erythematosus L93.2 DVT prophylaxis Z29.9
[2021-07-22] MEDS ORDERED: hydrALAZINE HCL 20 MG/ML VIAL IV STA (15:00)
--- NOTE | 2021-07-22 16:23 | XRay Report ---
SINGLE VIEW CHEST CLINICAL HISTORY: Fever FINDINGS: An AP, portable, upright chest radiograph is compared to study dated 07/21/2021. The examina tion is mildly degraded by portable technique and patient rotation. The heart is enlarged. The pulmon daksha vasculature is noncongested. Chronic interstitial thickening is similar to previous. There is bib asilar scarring/atelectasis. No airspace consolidation or large pleural effusion is identified. No pn eumothorax is seen. The skeletal structures are osteopenic. The bony thorax is grossly intact. Surgic al clips project over the right chest wall. IMPRESSION: Cardiomegaly with no acute cardiopulmonary abnormality. ACT 112: Negative or not required by law. Electronically signed by: Juanjo Dugan M.D. 07/22/2021 4:22 PM
[2021-07-22 16:42] LABS: Appearance Urine Clear (Clear); Bilirubin Urine Negative (Negative); Blood Urine Negative (Negative); Color Urine Yellow; Glucose Urine UA Negative (Negative); Ketones Urine Negative (Negative); Leukocyte Esterase Urine Negative (Negative); Nitrite Urine Negative (Negative); Protein Urine Negative (Negative); Specific Gravity Urine 1.019 (1.000-1.030); Urobilinogen Urine Negative (Negative)
[2021-07-22] MEDS: DOCUSATE SODIUM/SENNA 50/8.6MG TAB PO SCH (21:15)
[2021-07-22] MEDS: ASPIRIN 81 MG ECTAB PO SCH (21:15)
[2021-07-22] MEDS: LOVASTATIN 20 MG TAB PO SCH (21:16)
[2021-07-22] MEDS: LOSARTAN POTASSIUM 50 MG TAB PO SCH (21:16)
[2021-07-23 00:43] LABS: Adenovirus PCR Not Detected (NotDetected); Bordetella parapertussis PCR Not Detected (NotDetected); Bordetella pertussis PCR Not Detected (NotDetected); Chlamydia pneumoniae PCR Not Detected (NotDetected); Coronavirus 229E PCR Not Detected (NotDetected); Coronavirus CoV-2 (COVID19)PCR Not Detected (NotDetected); Coronavirus HKU1 PCR Not Detected (NotDetected); Coronavirus NL63 PCR Not Detected (NotDetected); Coronavirus OC43PCR Not Detected (NotDetected); Human Metapneumovirus PCR Not Detected (NotDetected); Influenza A PCR Not Detected (NotDetected); Influenza B PCR Not Detected (NotDetected); Mycoplasma pneumoniae PCR Not Detected (NotDetected); Parainfluenza Virus 1 PCR Not Detected (NotDetected); Parainfluenza Virus 2 PCR Not Detected (NotDetected); Parainfluenza Virus 3 PCR Not Detected (NotDetected); Parainfluenza Virus 4 PCR Not Detected (NotDetected); Respiratory Syncytial VirusPCR Not Detected (NotDetected); Rhinovirus/Enterovirus PCR Not Detected (NotDetected)
[2021-07-23] MEDS: ACETAMINOPHEN 500 MG TAB PO SCH ×3 (05:41→21:34)
[2021-07-23] MEDS: LEVOTHYROXINE SODIUM 100 MCG TABLET PO SCH (05:42)
[2021-07-23 07:56] LABS: Hematocrit (blood only) 34.1 % (37-47); Mean Corpuscular Hemoglobin 28.9 pg (25-34); Mean Corpuscular Hgb Conc 32.3 g/dL (32-36); Mean Corpuscular Volume 89.5 fL (80-100); Mean Platelet Volume 10.4 fL (7.4-10.4); Platelet Count 188 K/uL (130-400); RDW Coefficient of Variation 13.9 % (11.5-14.5); RDW Standard Deviation 45.8 fL (36.4-46.3); Red Blood Count 3.81 M/uL (4.2-5.4); White Blood Count 9.54 K/uL (4.8-10.8)
[2021-07-23] MEDS: GABAPENTIN 100 MG CAP PO SCH ×2 (08:06→21:35)
[2021-07-23] MEDS: METOPROLOL SUCC 25MG EXT REL TAB PO SCH (08:06)
[2021-07-23] MEDS: ASPIRIN 81 MG ECTAB PO SCH ×2 (08:06→21:35)
[2021-07-23] MEDS: CITALOPRAM 40 MG TAB PO SCH (08:06)
[2021-07-23] MEDS: MULTIVITAMIN TAB PO SCH (08:06)
[2021-07-23] MEDS: LOSARTAN POTASSIUM 50 MG TAB PO SCH ×2 (08:06→21:35)
[2021-07-23 08:19] LABS: BUN Creatinine Ratio 17.4 (10-20); Calcium 9.1 mg/dl (8.5-10.1); Creatinine Clr Calc Pharmacy 92.6 ml/min; Est GFR (African American) 99.4 ml/min; Est GFR (Non-African American) 85.8 ml/min; Potassium 3.7 mmol/L (3.5-5.1)
[2021-07-23] MEDS: INSULIN ASPART PER UNIT SC SCH ×4 (08:38→20:55)
--- NOTE | 2021-07-23 09:23 | Orthopedic Progress Note ---
Date of Service July 23, 2021 Assessment & Plan (1) Closed left hip fracture: Plan: POD 2 s/p Left Bipolar Hemiarthroplasty PT/OT protocol. WBAT. DVT prophylaxis - ASA bid, SCD's, DIANA's Pain managment as written. DC planning - Plan for [facility] vs SNF prior to return to home. Admission and Anticipated Discharge Date Admission Date: July 21, 2021 Subjective POD 2 Pt sitting up in bed awake, alert. No new complaints. States PT was a little rough yesterday. Physical Exam Physical Exam: Silverlon dressing has some drainage noted in the window. No excess drainage outside of the dressing. No erythema noted around the dressing. Thigh soft. Calves soft, NT. NV intact. Hip appears located. Results & Data ([facility]) Vital Signs (Past 12 Hours) Vital Signs Temp Pulse Pulse Pulse Resp BP Pulse Ox 07/23/21 08:48 57 L 153/83 H 07/23/21 08:00 37.2 C 110 H 26 H 182/116 H 92 07/22/21 23:03 37.8 C H 88 18 152/75 H 93 Laboratory Results Laboratory Results WBC 9.54 K/uL (4.8-10.8) 07/23/21 07:11 RBC 3.81 M/uL (4.2-5.4) L 07/23/21 07:11 Hgb 11.0 g/dL (12.0-16.0) L 07/23/21 07:11 Hct 34.1 % (37-47) L 07/23/21 07:11 MCV 89.5 fL (80-100) 07/23/21 07:11 MCH 28.9 pg (25-34) 07/23/21 07:11 MCHC 32.3 g/dL (32-36) 07/23/21 07:11 RDW Std Deviation 45.8 fL (36.4-46.3) 07/23/21 07:11 RDW Coeff of Ro 13.9 % (11.5-14.5) 07/23/21 07:11 Plt Count 188 K/uL (130-400) 07/23/21 07:11 MPV 10.4 fL (7.4-10.4) 07/23/21 07:11 Immature Gran % (Auto) 0.2 % 07/22/21 07:10 Neut % (Auto) 80.2 % 07/22/21 07:10 Lymph % (Auto) 10.6 % 07/22/21 07:10 [place] % (Auto) 8.7 % 07/22/21 07:10 Eos % (Auto) 0.3 % 07/22/21 07:10 Baso % (Auto) 0.0 % 07/22/21 07:10 Neut # (Auto) 5.32 K/uL (1.4-6.5) 07/22/21 07:10 Lymph # (Auto) 0.70 K/uL (1.2-3.4) L 07/22/21 07:10 [place] # (Auto) 0.58 K/uL (0.11-0.59) 07/22/21 07:10 Eos # (Auto) 0.02 K/uL (0-0.5) 07/22/21 07:10 Baso # (Auto) 0.00 K/uL (0-0.2) 07/22/21 07:10 Immature Gran # (Auto) 0.01 K/uL (0.00-0.02) 07/22/21 07:10 Sodium 132 mmol/L (136-145) L 07/23/21 07:11 Potassium 3.7 mmol/L (3.5-5.1) 07/23/21 07:11 Chloride 102 mmol/L (98-107) 07/23/21 07:11 Carbon Dioxide 24 mmol/L (21-32) 07/23/21 07:11 Anion Gap 6 (3-11) 07/23/21 07:11 BUN 12 mg/dl (6-23) 07/23/21 07:11 Creatinine 0.69 mg/dl (0.6-1.2) 07/23/21 07:11 Est Cr Clr Drug Dosing 92.6 ml/min 07/23/21 07:11 Est GFR ( Amer) 99.4 ml/min 07/23/21 07:11 Est GFR (Non-Af Amer) 85.8 ml/min 07/23/21 07:11 BUN/Creatinine Ratio 17.4 (10-20) 07/23/21 07:11 Glucose 161 mg/dl (70-99) H 07/23/21 07:11 POC Glucose 178 mg/dl (70-99) H 07/23/21 08:12 Estimat Average Glucose 140 mg/dl 07/22/21 07:10 Hemoglobin A1c 6.5 % (4.5-5.6) H 07/22/21 07:10 Calcium 9.1 mg/dl (8.5-10.1) 07/23/21 07:11 Urine Color Yellow 07/22/21 16:05 Urine Appearance Clear (Clear) 07/22/21 16:05 Urine pH 5.0 (4.5-7.5) 07/22/21 16:05 Ur Specific Hodge 1.019 (1.000-1.030) 07/22/21 16:05 Urine Protein Negative (Negative) 07/22/21 16:05 Urine Glucose (UA) Negative (Negative) 07/22/21 16:05 Urine Ketones Negative (Negative) 07/22/21 16:05 Urine Blood Negative (Negative) 07/22/21 16:05 Urine Nitrite Negative (Negative) 07/22/21 16:05 Urine Bilirubin Negative (Negative) 07/22/21 16:05 Urine Urobilinogen Negative (Negative) 07/22/21 16:05 Ur Leukocyte Esterase Negative (Negative) 07/22/21 16:05 Adenovirus (PCR) Not Detected (NotDetected) 07/22/21 23:10 B. pertussis DNA (PCR) Not Detected (NotDetected) 07/22/21 23:10 B.parapertussis DNA PCR Not Detected (NotDetected) 07/22/21 23:10 C. pneumoniae DNA (PCR) Not Detected (NotDetected) 07/22/21 23:10 Coronavirus OC43 (PCR) Not Detected (NotDetected) 07/22/21 23:10 Coronavirus HKU1 (PCR) Not Detected (NotDetected) 07/22/21 23:10 Coronavirus 229E (PCR) Not Detected (NotDetected) 07/22/21 23:10 SARS-CoV-2 (PCR) Not Detected (NotDetected) 07/22/21 23:10 Coronavirus NL63 (PCR) Not Detected (NotDetected) 07/22/21 23:10 Human Metapneumovir PCR Not Detected (NotDetected) 07/22/21 23:10 Influenza Type A (PCR) Not Detected (NotDetected) 07/22/21 23:10 Influenza Type B (PCR) Not Detected (NotDetected) 07/22/21 23:10 M. pneumoniae (PCR) Not Detected (NotDetected) 07/22/21 23:10 Parainfluenza 1 (PCR) Not Detected (NotDetected) 07/22/21 23:10 Parainfluenza 2 (PCR) Not Detected (NotDetected) 07/22/21 23:10 Parainfluenza 3 (PCR) Not Detected (NotDetected) 07/22/21 23:10 Parainfluenza 4 (PCR) Not Detected (NotDetected) 07/22/21 23:10 RSV (PCR) Not Detected (NotDetected) 07/22/21 23:10 Entero/Rhino (PCR) Not Detected (NotDetected) 07/22/21 23:10 SARS-CoV-2, RNA, NAAT NEGATIVE (NEGATIVE) 07/21/21 22:15 Blood Type O Negative 07/21/21 20:32 Antibody Screen NEGATIVE 07/21/21 20:32
--- NOTE | 2021-07-23 12:40 | Ultrasound Report ---
ULTRASOUND LEFT LOWER EXTREMITY VENOUS CLINICAL HISTORY: Postoperative fever. Left calf pain. COMPARISON STUDY: Left lower extremity venous ultrasound dated 04/29/2016 TECHNIQUE: Real-time, grayscale, and color Doppler sonography of the deep veins of the left lower ext remity was performed from the inguinal crease to the calf. Compression and augmentation were utilized . FINDINGS: There is no sonographic evidence of deep venous thrombosis identified in the left lower ext remity. The common femoral, superficial femoral, and popliteal veins are patent and normally compress ible. The greater saphenous vein and the profunda femoris vein at the junction with the common femora l vein are clear. The visualized calf veins are patent. IMPRESSION: There is no sonographic evidence of deep venous thrombosis identified in the left lower e xtremity. ACT 112: Negative or not required by law. Electronically signed by: Juanjo Dugan M.D. 07/23/2021 12:38 PM
--- NOTE | 2021-07-23 13:46 | Hospitalist Progress Note ---
Date of Service July 23, 2021 Assessment & Plan (1) Postoperative fever: Plan: Etiology? - Obtained a UA, clean - CXR, no evidence of pneumonia - Wound w/ siverlon dressing in place, no obvious signs of infection - Obtained a venous doppler of LLE, negative - Blood cultures drawn x2 sets, results pending - Afebrile today - Remove porter - Monitor (2) Closed left hip fracture: Plan: - pt with left femoral neck fracture s/p bipolar hemiarthroplasty pod#2 - orthopedics following, pain medications changed from oxy to tramadol per pt's request - recommend hourly use of incentive spirometer for atelectasis/pna prevention - oob w/ assistance - PT/OT services - anticipate need for acute rehab following this hospitalization prior to returning home (lives alone) - dvt ppx as outlined below - case management consult for d/c planning (3) Type 2 diabetes mellitus: Plan: - oral medications on hold - continued on her basal insulin - diabetic diet as ordered - accuchecks AC and HS - sliding scale insulin for glycemic correction (4) Hypertension: Plan: - continue metoprolol and losartan - losartan dosing is BID and was held 07/22 AM d/t spinal anesthesia - losartan now resumed, bp acceptable (hypertensive this AM but normalized after being medicated) (5) Depression: Plan: - continue citalopram (6) Hypothyroidism: Plan: - continue synthroid 100mcg (7) Cutaneous lupus erythematosus: Plan: - on topical steroids (8) DVT prophylaxis: Plan: - h/o breast ca and colon ca, no active malignancy to my knowledge - would recommend post op dvt ppx x 30-35 days - she is obese which puts her at increased risk - xarelto 10mg daily Plan: Follow up labs in AM. Remove porter this afternoon. Case management for d/c planning -- anticipate need for acute rehab. Admission and Anticipated Discharge Date Admission Date: July 21, 2021 Subjective Patient seen on rounds this morning. She is POD#2 from bipolar hemiarthroplasty of L hip due to fracture. She reported no pain at rest, after ambulating pain 2/10. She denies chest pain, dyspnea, n/v/d, f/c, headache, or gu symptoms. Porter catheter still in place. No BM yet since surgery. Tolerating oral intake. Post op fever noted yesterday, last temp elevation noted at 2300 at 37.8C on 07/22/21. Review of Systems Review of Systems: CONSTITUTIONAL: +fever yesterday, none today. Denies weight loss/gain, fatigue, malaise, generalized weakness. HEENT: Denies changes in vision and hearing. RESPIRATORY: Denies SOB, cough, wheezing. CV: Denies palpitations, CP, lower extremity edema, orthopnea, PND. GI: Denies abdominal pain, nausea, vomiting and diarrhea. : +porter. MUSCULOSKELETAL: +L hip pain 2/10. SKIN: Denies rash and pruritus. NEUROLOGICAL: Denies headache, syncope, focal weakness, numbness, tingling. PSYCHIATRIC: Denies recent changes in mood. Denies anxiety and depression. Physical Exam Physical Exam: GENERAL: 75 yo morbidly obese elderly WF. Pleasant, cooperative. NAD. Afebrile today. LUNGS: Clear to auscultation bilaterally. No accessory muscle use. No W/R/R. CARDIOVASCULAR: Regular rate and rhythm. No M/G/R. No JVD. ABDOMEN: Soft, nontender, normal BS x 4 quad. EXTREMITIES: No edema. Non-tender. Peripheral pulses +2/4. NEUROLOGIC: A&O x3. PSYCHIATRIC: Cooperative. Appropriate mood and affect. SKIN: Warm, dry, intact. No rashes or lesions. Results & Data Results & Data ([facility]) Vital Signs (Past 12 Hours) Vital Signs Temp Pulse Pulse Resp BP BP Pulse Ox 07/23/21 11:14 36.7 C 81 24 136/86 93 07/23/21 08:48 57 L 153/83 H 07/23/21 08:00 37.2 C 110 H 26 H 182/116 H 92 Laboratory Results 07/23/21 07:11 07/23/21 07:11 PG Care Time/CCT Total # of Minutes Spent Total Time Spent with Patient: Total time spent is greater than 50% in coordination of care (as documented) at patient's floor/unit and/or counseling patient: Coding Level of Care Code 37408 Subseq Hosp Care Lvl 3 Diagnoses Closed left hip fracture S72.002A Type 2 diabetes mellitus E11.9 Hypertension I10 Depression F32.9 Hypothyroidism E03.9 Cutaneous lupus erythematosus L93.2 DVT prophylaxis Z29.9 Postoperative fever R50.82
[2021-07-23] MEDS: RIVAROXABAN 10 MG TABLET PO SCH (14:31)
[2021-07-23 17:52] LABS: D Dimer 1720 ug/L FEU (0-500)
[2021-07-23] MEDS ORDERED: OPTIRAY 320 125ml IV ONE (21:20)
[2021-07-23] MEDS: DOCUSATE SODIUM/SENNA 50/8.6MG TAB PO SCH (21:34)
[2021-07-23] MEDS: LOVASTATIN 20 MG TAB PO SCH (21:34)
--- NOTE | 2021-07-23 21:38 | CT Scan Report ---
CT angio chest PE protocol CLINICAL HISTORY: Fever. Evaluate for pulmonary embolus COMPARISON STUDY: Portable chest from 07/22/2021 CT DOSE: 691.50 mGy.cm TECHNIQUE: CT Angio of the chest was performed.followed by image post processing with coronal, and s agittal MIP reformats. Contrast Volume: Optiray 320, 114 ml FINDINGS: Vasculature: There is homogeneous perfusion of the pulmonary vasculature bilaterally. No intraluminal filling defects or evidence for pulmonary embolus is seen. Airway: The airway is clear. No endobronchial lesion is identified. Lungs: There is an 8 mm noncalcified left upper lobe pulmonary nodule as seen on image 184 of 278. Th e lungs are otherwise clear of acute alveolar opacities, air bronchograms or additional pulmonary nod ules. Pleura: There is no evidence for pleural effusion. There is no evidence for pneumothorax. Mediastinum: There is no evidence for pathologic adenopathy. The heart size is within normal limits. There is extensive coronary artery calcification. The thoracic aorta is within normal limits. There i s no evidence for pericardial effusion. Upper abdomen:The adrenal glands are normal bilaterally. There is a small to moderate size hiatal her lauren. Osseous structures: There is no acute osseous pathology. Degenerative changes are seen within the sp ine. Impression: 1. No CTA evidence for pulmonary embolus. 2. No acute chest disease. 3. However, there is an 8 mm noncalcified left upper lobe pulmonary nodule and follow-up is recommend ed utilizing Fleischner criteria. 4. Extensive coronary artery calcification. 5. Small to moderate size hiatal hernia. Please refer to below summary of Fleischner criteria recommendations for follow-up of incidental CT n odules (Zonia Padron, Guidelines for management of small pulmonary nodules detected on CT scans: A sta tement from the Fleischner Society, Radiology 237: [phone].) SOLID NODULES Solitary nodule size: <6 mm * low risk patients: no follow-up needed * high risk patients: optional CT at 12 months Solitary nodule size: 6-8 mm * low risk patients: follow-up at 6-12 months, then consider further follow-up at 18-24 months * high risk patients: initial follow-up CT at 6-12 months and then at 18-24 months if no change Solitary nodule size: >8 mm * either low or high risk patients - consider follow-up CT at 3 months, and/or CT-PET, and/or biopsy Multiple nodules size: <6 mm * low risk patients: no routine follow-up * high risk patients: optional CT at 12 months Multiple nodules size: 6-8 mm * low risk patients: follow-up at 3-6 months, then consider further follow-up at 18-24 months * high risk patients: follow-up at 3-6 months, then at 18-24 months if no change Multiple nodules size: >8 mm * low risk patients: follow-up at 3-6 months, then consider further follow-up at 18-24 months * high risk patients: follow-up at 3-6 months, then at 18-24 months if no change Note: newly detected indeterminate nodule in persons 35 years of age or older. * low risk patients: minimal or absent history of smoking and/or other known risk factors * high risk patients: history of smoking or of other known risk factors (e.g. first degree relative with lung cancer, or exposure to asbestos, radon, uranium) * if a nodule up to 8 mm is partly solid or is ground glass further follow-up is required after 24 m onths to exclude possible slow growing adenocarcinoma (PEDRO) SUBSOLID NODULES Solitary pure ground-glass nodule * nodule size <6 mm - no CT follow-up required * nodule size >=6 mm - follow-up CT at 6-12 months, then every 2 years until 5 years Solitary part-solid nodule * nodule size <6 mm - no CT follow-up required * nodule size >=6 mm - follow-up CT at 3-6 months. If unchanged, and solid component remains <6 mm, then annual follow-up for 5 years Multiple subsolid nodules * nodule size <6 mm - follow-up CT at 3-6 months, consider further follow-up at 2 and 4 years if sta ble * nodule size >=6 mm - follow-up CT at 3-6 months, subsequent management based on the most suspiciou s nodule(s) ACT 112: Negative or not required by law. Electronically signed by: Kingsley Brand M.D. 07/23/2021 9:37 PM
[2021-07-24] MEDS: LEVOTHYROXINE SODIUM 100 MCG TABLET PO SCH (05:57)
[2021-07-24] MEDS: ACETAMINOPHEN 500 MG TAB PO SCH ×3 (05:57→20:45)
[2021-07-24] MEDS: CITALOPRAM 40 MG TAB PO SCH (07:52)
[2021-07-24] MEDS: MULTIVITAMIN TAB PO SCH (07:52)
[2021-07-24] MEDS: ASPIRIN 81 MG ECTAB PO SCH ×2 (07:53→20:46)
[2021-07-24] MEDS: RIVAROXABAN 10 MG TABLET PO SCH (07:53)
[2021-07-24] MEDS: METOPROLOL SUCC 25MG EXT REL TAB PO SCH (07:54)
[2021-07-24] MEDS: LOSARTAN POTASSIUM 50 MG TAB PO SCH ×2 (07:54→20:46)
[2021-07-24] MEDS: GABAPENTIN 100 MG CAP PO SCH ×2 (07:56→20:45)
[2021-07-24] MEDS: INSULIN ASPART PER UNIT SC SCH ×4 (09:17→20:56)
[2021-07-24 10:06] LABS: BUN Creatinine Ratio 22.2 (10-20); Calcium 9.4 mg/dl (8.5-10.1); Creatinine Clr Calc Pharmacy 99.9 ml/min; Est GFR (African American) 101.7 ml/min; Est GFR (Non-African American) 87.7 ml/min; Potassium 3.5 mmol/L (3.5-5.1)
--- NOTE | 2021-07-24 11:10 | Orthopedic Progress Note ---
Date of Service July 24, 2021 Assessment & Plan (1) Closed left hip fracture: Plan: POD 3 s/p Left Bipolar Hemiarthroplasty PT/OT protocol. WBAT. DVT prophylaxis - ASA bid, SCD's, DIANA's Pain managment as written. DC planning - Plan for [facility] vs SNF prior to return to home. xeroform/abd and paper tape due to blisters Ortho will sign off for now. Please call if needed. Patient was seen with Dr. Estrella today. Admission and Anticipated Discharge Date Admission Date: July 21, 2021 Subjective Patient is resting in bed with no complaints. Denies SOB, pain, dizziness Physical Exam Physical Exam: Toes mobile, NVI. Calves soft, non tender. Silverlon dressing removed. blisters along edge of dressing from silverlon. Xeroform dressing applied with abd and paper tape No signs infection. No erythema, increased swelling. No pain with motion of the hip Results & Data ([facility]) Vital Signs (Past 12 Hours) Vital Signs Temp Pulse Resp BP Pulse Ox 07/24/21 07:00 36.8 C 101 H 18 172/90 H 96
--- NOTE | 2021-07-24 17:36 | Hospitalist Progress Note ---
Date of Service July 24, 2021 Assessment & Plan (1) Postoperative fever: Plan: Etiology? - Last temperature spike 07/23 at 2300 of 100.04 F - Urinalysis is not grossly infected - BC NGTD - CXR, no evidence of pneumonia - Wound w/ siverlon dressing in place, no obvious signs of infection - Obtained a venous doppler of LLE, negative - D-dimer positive leading to CTA of the chest showing no evidence of acute cardiopulmonary process - Last temperature rise was low-grade at 100.04 F and last evening. We will continue to monitor. Strongly encourage incentive spirometer use every 1 hour while awake (2) Closed left hip fracture: Plan: - pt with left femoral neck fracture s/p bipolar hemiarthroplasty pod#3 - orthopedics following, pain medications changed from oxy to tramadol per pt's request--> pain controlled - recommend hourly use of incentive spirometer for atelectasis/pna prevention - oob w/ assistance - PT/OT services - anticipate need for acute rehab following this hospitalization prior to returning home (lives alone) - dvt ppx as outlined below - case management consult for d/c planning (3) Type 2 diabetes mellitus: Plan: - oral medications on hold - continued on her basal insulin - diabetic diet as ordered - accuchecks AC and HS - sliding scale insulin for glycemic correction (4) Hypertension: Plan: - continue metoprolol and losartan - losartan dosing is BID and was held 1/13 AM d/t spinal anesthesia - losartan now resumed, bp acceptable (5) Depression: Plan: - continue citalopram (6) Hypothyroidism: Plan: - continue synthroid 100mcg (7) Cutaneous lupus erythematosus: Plan: - on topical steroids (8) DVT prophylaxis: Plan: - h/o breast ca and colon ca, no active malignancy to my knowledge - would recommend post op dvt ppx x 30-35 days - she is obese which puts her at increased risk - xarelto 10mg daily Plan: Has been evaluated by therapy services who is recommending acute rehab. Case management consulted to help facilitate with this Admission and Anticipated Discharge Date Admission Date: July 21, 2021 Subjective Patient seen on daily rounds today. Overall, pain is adequately controlled. Tolerating pain medication without ill effects. Work-up done given postoperative fever. Last temperature rise was 07/23 at 2300 of 100.04. Patient denies any respiratory symptoms including nasal congestion, rhinorrhea, sore throat, change in taste/smell, cough, shortness of breath. In addition, denies nausea, vomiting, abdominal pain, dysuria, hematuria, urinary frequency. Orthopedics in during my exam and change dressing. Surgical site clean and intact. Does not appear to be a grossly infected Review of Systems Review of Systems: All systems reviewed and are unremarkable except as noted in HPI and below Denies fevers, chills, headache, nasal congestion, sore throat, cough, chest pain, shortness of breath, palpitations, orthopnea, PND, abdominal pain, nausea, vomiting, diarrhea, constipation, dysuria, hematuria, frequency, back pain, joint pain or swelling, easy bruising or bleeding, skin lesions or rashes. Physical Exam Physical Exam: General: Resting comfortably in her hospital bed. NAD. HEENT: Head is AT/NC buccal mucosa is moist and pink Neck: No JVD. Negative hepatojugular reflex Cardiac: RRR with 1/6 CIERA Lungs: CTA without W/R/R Abdomen: Normoactive X4. Soft and nontender in all quadrants. Extremities: Left hip with intact surgical dressing. Dry. Distal pulses to the bilateral lower extremities intact symmetrical. Capillary refill +2. Negative Homans' sign. No calf tenderness. Neuro: A&O X4 cranial nerves II through XII are grossly intact no focal neuro deficits Skin: No obvious skin lesions or rashes Psych: Appropriate affect pleasant and cooperative Results & Data Results & Data ([facility]) Vital Signs (Past 12 Hours) Vital Signs Temp Pulse Resp BP Pulse Ox 07/24/21 15:58 37.1 C 93 H 18 151/77 H 96 07/24/21 07:00 36.8 C 101 H 18 172/90 H 96 Laboratory Results 07/23/21 07:11 07/24/21 08:55 PG Care Time/CCT Total # of Minutes Spent Total Time Spent with Patient: Total time spent is greater than 50% in coordination of care (as documented) at patient's floor/unit and/or counseling patient: Coding Level of Care Code 15917 Subseq Hosp Care Lvl 2 Diagnoses Postoperative fever R50.82 Closed left hip fracture S72.002A Type 2 diabetes mellitus E11.9 Hypertension I10 Depression F32.9 Hypothyroidism E03.9 Cutaneous lupus erythematosus L93.2 DVT prophylaxis Z29.9
[2021-07-24] MEDS: LOVASTATIN 20 MG TAB PO SCH (20:45)
[2021-07-24] MEDS: DOCUSATE SODIUM/SENNA 50/8.6MG TAB PO SCH (20:49)
[2021-07-25] MEDS: LEVOTHYROXINE SODIUM 100 MCG TABLET PO SCH (05:50)
[2021-07-25] MEDS: ACETAMINOPHEN 500 MG TAB PO SCH ×3 (05:50→20:52)
[2021-07-25 06:21] LABS: Hematocrit (blood only) 33.7 % (37-47); Hemoglobin 10.6 g/dL (12.0-16.0); Mean Corpuscular Hemoglobin 28.4 pg (25-34); Mean Corpuscular Hgb Conc 31.5 g/dL (32-36); Mean Corpuscular Volume 90.3 fL (80-100); Mean Platelet Volume 10.4 fL (7.4-10.4); Platelet Count 225 K/uL (130-400); RDW Standard Deviation 46.3 fL (36.4-46.3); Red Blood Count 3.73 M/uL (4.2-5.4); White Blood Count 9.75 K/uL (4.8-10.8)
[2021-07-25 06:52] LABS: BUN Creatinine Ratio 27.1 (10-20); Creatinine Clr Calc Pharmacy 89.9 ml/min; Est GFR (African American) 98.2 ml/min; Est GFR (Non-African American) 84.8 ml/min; Magnesium 1.6 mg/dl (1.7-2.4); Potassium 3.3 mmol/L (3.5-5.1)
[2021-07-25] MEDS ORDERED: METOPROLOL SUCC 25MG EXT REL TAB PO SCH (09:00)
[2021-07-25] MEDS: CITALOPRAM 40 MG TAB PO SCH (09:06)
[2021-07-25] MEDS: GABAPENTIN 100 MG CAP PO SCH ×2 (09:06→20:52)
[2021-07-25] MEDS: ASPIRIN 81 MG ECTAB PO SCH ×2 (09:07→20:53)
[2021-07-25] MEDS: LOSARTAN POTASSIUM 50 MG TAB PO SCH ×2 (09:07→20:52)
[2021-07-25] MEDS: RIVAROXABAN 10 MG TABLET PO SCH (09:08)
[2021-07-25] MEDS: MULTIVITAMIN TAB PO SCH (09:08)
[2021-07-25] MEDS: INSULIN ASPART PER UNIT SC SCH ×4 (09:19→21:57)
[2021-07-25] MEDS ORDERED: POTASSIUM CHLORIDE CRTAB 20 MEQ TABCR PO ONE (09:24)
--- NOTE | 2021-07-25 09:32 | Hospitalist Progress Note ---
Date of Service July 25, 2021 Assessment & Plan (1) Postoperative fever: Plan: Etiology? - Last temperature spike 07/23 at 2300 of 100.04 F - Urinalysis NOT grossly infected - BC NGTD - CXR, no evidence of pneumonia - Wound w/ siverlon dressing in place, no obvious signs of infection - Obtained a venous doppler of LLE, negative - D-dimer positive leading to CTA of the chest showing no evidence of acute cardiopulmonary process - Last temperature rise was low-grade at 100.04 F and last evening. We will continue to monitor. Strongly encourage incentive spirometer use every 1 hour while awake - ? atelectasis - pt now with frequent loose stool but on Senokot. If patient spikes an additional fever, will obtain stool studies for C. difficile but at this time, hold off as no reported fever since 07/23 (2) Closed left hip fracture: Plan: - pt with left femoral neck fracture s/p bipolar hemiarthroplasty pod#4 - orthopedics following, pain medications changed from oxy to tramadol per pt's request--> pain controlled - recommend hourly use of incentive spirometer for atelectasis/pna prevention - oob w/ assistance - PT/OT services - anticipate need for acute rehab following this hospitalization prior to returning home (lives alone) - dvt ppx: on xarelto - H/H stable - case management consult for d/c planning (3) Diarrhea: Plan: - Patient empirically placed on Senokot but is not utilizing narcotics for pain - Is not having more than 10 loose bowel movements a day. Stop Senokot for now and monitor. If persistent despite withholding Senokot, will obtain stool for C. difficile (4) Hypokalemia: Plan: - Likely secondary to diarrhea - Replace (5) Type 2 diabetes mellitus: Plan: - oral medications on hold - continued on her basal insulin - diabetic diet as ordered - accuchecks AC and HS (BS accetable at this time: 68 - 94 - 148 - 170 - 160) - sliding scale insulin for glycemic correction (6) Hypertension: Plan: - continue metoprolol and losartan - losartan dosing is BID and was held 1/13 AM d/t spinal anesthesia - losartan now resumed - BP has remained elevated (160-180 systolic). Patient denies any reports of pain - Heart rate 90s to 100s. Increase beta-blockade to 37.5 mg and continue to monitor - Clonidine as needed on board with parameters (7) Depression: Plan: - continue citalopram (8) Hypothyroidism: Plan: - continue synthroid 100mcg (9) Cutaneous lupus erythematosus: Plan: - on topical steroids (10) DVT prophylaxis: Plan: - h/o breast ca and colon ca, no active malignancy to my knowledge - would recommend post op dvt ppx x 30-35 days - she is obese which puts her at increased risk - xarelto 10mg daily Plan: Has been evaluated by therapy services who is recommending acute rehab. Case management consulted to help facilitate with this Patient currently medically and hemodynamically stable for discharge Plan of care to be discussed with Dr. Bermudez. Further orders as warranted. Admission and Anticipated Discharge Date Admission Date: July 21, 2021 Subjective Patient seen on daily rounds today. Pain adequately controlled. Not requiring anything for pain at this point. Her only complaint is frequent loose stools. She is on Senokot which was added empirically given pain medication on board; however, as previously stated she is not taking any of the pain medication as her pain is tolerable. Otherwise, has not had any fever spikes since her low-grade temp the evening of 07/23. Is using her incentive spirometry without difficulty. Nursing voices no complaints or concerns. Review of Systems Review of Systems: All systems reviewed and are unremarkable except as noted in HPI and below Denies fevers, chills, headache, nasal congestion, sore throat, cough, chest pain, shortness of breath, palpitations, orthopnea, PND, abdominal pain, nausea, vomiting, constipation, dysuria, hematuria, frequency, back pain, joint pain or swelling, easy bruising or bleeding, skin lesions or rashes. Physical Exam Physical Exam: General: Resting comfortably currently on the bedside commode. NAD. HEENT: Head is AT/NC buccal mucosa is moist and pink Neck: No JVD. Negative hepatojugular reflex Cardiac: RRR with 1/6 CIERA Lungs: CTA without W/R/R Abdomen: Normoactive X4. Soft and nontender in all quadrants. Extremities: Left hip with intact surgical dressing. Dry. Distal pulses to the bilateral lower extremities intact symmetrical. Capillary refill +2. Negative Homans' sign. No calf tenderness. Neuro: A&O X4 cranial nerves II through XII are grossly intact no focal neuro deficits Skin: No obvious skin lesions or rashes Psych: Appropriate affect pleasant and cooperative Results & Data Results & Data ([facility]) Vital Signs (Past 12 Hours) Vital Signs Temp Pulse Resp BP Pulse Ox 07/25/21 09:05 107 H 156/80 H 07/25/21 07:28 36.7 C 101 H 18 151/81 H 96 Laboratory Results 07/25/21 05:29 07/25/21 05:29 PG Care Time/CCT Total # of Minutes Spent Total Time Spent with Patient: Total time spent is greater than 50% in coordination of care (as documented) at patient's floor/unit and/or counseling patient: Coding Level of Care Code 74828 Subseq Hosp Care Lvl 2 Diagnoses Postoperative fever R50.82 Closed left hip fracture S72.002A Type 2 diabetes mellitus E11.9 Hypertension I10 Depression F32.9 Hypothyroidism E03.9 Cutaneous lupus erythematosus L93.2 DVT prophylaxis Z29.9 Diarrhea R19.7 Hypokalemia E87.6
[2021-07-25] MEDS: traMADol HCL 50 MG TABLET PO PRN (19:35)
[2021-07-25] MEDS: LOVASTATIN 20 MG TAB PO SCH (20:52)
[2021-07-26] MEDS: ACETAMINOPHEN 500 MG TAB PO SCH ×3 (05:30→20:52)
[2021-07-26] MEDS: LEVOTHYROXINE SODIUM 100 MCG TABLET PO SCH (05:30)
--- NOTE | 2021-07-26 07:09 | Hospitalist Progress Note ---
Date of Service July 26, 2021 Assessment & Plan (1) Postoperative fever: Plan: Exact Etiology Unclear but suspect post-op atelectasis - Last temperature spike 07/23 at 2300 of 100.04 F - Urinalysis NOT grossly infected - BC= No growth - CXR, no evidence of pneumonia - Wound- no obvious signs of infection - venous doppler of LLE- no DVT - D-dimer positive leading to CTA of the chest -no evidence of acute cardiopulmonary process - ? atelectasis-- reiterated importance of Incentive Spirometry. Pt utilizing this. - /16: loose stools reported but on Senokot (which has since been stopped). Loose stools improved but not resolved-- will obtain stool for C.Diff (2) Closed left hip fracture: Plan: - pt with left femoral neck fracture s/p bipolar hemiarthroplasty pod#5 - orthopedics following, pain medications changed from oxy to tramadol per pt's request--> pain controlled - recommend hourly use of incentive spirometer for atelectasis/pna prevention - oob w/ assistance - PT/OT services - patient lives alone and therapy recommending rehab. CM consulted to help with this - dvt ppx: on xarelto - H/H stable (3) Diarrhea: Plan: - Patient empirically placed on Senokot but is not utilizing narcotics for pain - Senokot since stopped and loose stools improved but persistent - does not have a fever or leukocytosis but was febrile (unknown etiology). Not highly suspicious of C.Diff will sample and test for if persistent (4) Hypokalemia: Plan: - Likely secondary to diarrhea - Replaced/resolved (5) Type 2 diabetes mellitus: Plan: - oral medications on hold - continued on her basal insulin - diabetic diet as ordered - accuchecks AC and HS (BS accetable at this time: 68 - 94 - 148 - 170 - 160) - sliding scale insulin for glycemic correction (6) Hypertension: Plan: - continue metoprolol and losartan - losartan dosing is BID and was held 1/13 AM d/t spinal anesthesia - losartan now resumed - BP has remained elevated (160-180 systolic) despite uptitrated in BB. Patient denies any reports of pain - Heart rate reamins 90s to 100s. - patient reports "always high" - still 160/98 - Increase beta-blockade further to 50mg and continue to monitor - Clonidine as needed on board with parameters (7) Depression: Plan: - continue citalopram (8) Hypothyroidism: Plan: - continue synthroid 100mcg (9) Cutaneous lupus erythematosus: Plan: - on topical steroids (10) DVT prophylaxis: Plan: - h/o breast ca and colon ca, no active malignancy to my knowledge - would recommend post op dvt ppx x 30-35 days - she is obese which puts her at increased risk - xarelto 10mg daily x 30-35 days Plan: Has been evaluated by therapy services who is recommending acute rehab. Case management consulted to help facilitate with this Patient currently medically and hemodynamically stable for discharge Plan of care to be discussed with Dr. Bermudez. Further orders as warranted. Admission and Anticipated Discharge Date Admission Date: July 21, 2021 Subjective Patient seen on daily round today. Senokot since stopped but still with loose stools. Overwise, denies abd pain, F/C. No fever or leukotycosis Review of Systems Review of Systems: All systems reviewed and are unremarkable except as noted in HPI and below Denies fevers, chills, headache, nasal congestion, sore throat, cough, chest pain, shortness of breath, palpitations, orthopnea, PND, abdominal pain, nausea, vomiting, constipation, dysuria, hematuria, frequency, back pain, joint pain or swelling, easy bruising or bleeding, skin lesions or rashes. Physical Exam Physical Exam: General: Resting comfortably currently on the bedside commode. NAD. HEENT: Head is AT/NC buccal mucosa is moist and pink Neck: No JVD. Negative hepatojugular reflex Cardiac: RRR with 1/6 CIERA Lungs: CTA without W/R/R Abdomen: Normoactive X4. Soft and nontender in all quadrants. Extremities: Left hip with intact surgical dressing. Dry. Distal pulses to the bilateral lower extremities intact symmetrical. Capillary refill +2. Negative Homans' sign. No calf tenderness. Neuro: A&O X4 cranial nerves II through XII are grossly intact no focal neuro deficits Skin: No obvious skin lesions or rashes Psych: Appropriate affect pleasant and cooperative Results & Data Results & Data ([facility]) Vital Signs (Past 12 Hours) Vital Signs Temp Pulse Resp BP Pulse Ox 07/25/21 23:00 37.0 C 97 H 16 160/98 H 92 Laboratory Results no lab data today PG Care Time/CCT Total # of Minutes Spent Total Time Spent with Patient: Total time spent is greater than 50% in coordination of care (as documented) at patient's floor/unit and/or counseling patient: Coding Level of Care Code 67683 Subseq Hosp Care Lvl 2 Diagnoses Postoperative fever R50.82 Closed left hip fracture S72.002A Diarrhea R19.7 Hypokalemia E87.6 Type 2 diabetes mellitus E11.9 Hypertension I10 Depression F32.9 Hypothyroidism E03.9 Cutaneous lupus erythematosus L93.2 DVT prophylaxis Z29.9
[2021-07-26] MEDS: CITALOPRAM 40 MG TAB PO SCH (09:19)
[2021-07-26] MEDS: INSULIN ASPART PER UNIT SC SCH ×4 (09:19→21:04)
[2021-07-26] MEDS: ASPIRIN 81 MG ECTAB PO SCH ×2 (09:19→20:53)
[2021-07-26] MEDS: LOSARTAN POTASSIUM 50 MG TAB PO SCH ×2 (09:19→20:52)
[2021-07-26] MEDS: GABAPENTIN 100 MG CAP PO SCH ×2 (09:19→20:52)
[2021-07-26] MEDS: RIVAROXABAN 10 MG TABLET PO SCH (09:20)
[2021-07-26] MEDS: MULTIVITAMIN TAB PO SCH (09:20)
[2021-07-26] MEDS: METOPROLOL SUCC 50MG EXT REL TAB PO SCH (09:23)
[2021-07-26] MEDS: LOVASTATIN 20 MG TAB PO SCH (20:52)
[2021-07-27] MEDS: ACETAMINOPHEN 500 MG TAB PO SCH ×3 (06:07→20:09)
[2021-07-27] MEDS: LEVOTHYROXINE SODIUM 100 MCG TABLET PO SCH (06:08)
[2021-07-27 07:10] LABS: Hematocrit (blood only) 32.3 % (37-47); Hemoglobin 9.9 g/dL (12.0-16.0); Mean Corpuscular Hemoglobin 28.4 pg (25-34); Mean Corpuscular Hgb Conc 30.7 g/dL (32-36); Mean Corpuscular Volume 92.8 fL (80-100); Mean Platelet Volume 9.9 fL (7.4-10.4); Platelet Count 272 K/uL (130-400); RDW Coefficient of Variation 14.2 % (11.5-14.5); RDW Standard Deviation 48.2 fL (36.4-46.3); Red Blood Count 3.48 M/uL (4.2-5.4); White Blood Count 5.62 K/uL (4.8-10.8)
[2021-07-27] MEDS: RIVAROXABAN 10 MG TABLET PO SCH (08:46)
[2021-07-27] MEDS: LOSARTAN POTASSIUM 50 MG TAB PO SCH ×2 (08:46→20:10)
[2021-07-27] MEDS: METOPROLOL SUCC 50MG EXT REL TAB PO SCH (08:46)
[2021-07-27] MEDS: CITALOPRAM 40 MG TAB PO SCH (08:47)
[2021-07-27] MEDS: GABAPENTIN 100 MG CAP PO SCH ×2 (08:47→20:10)
[2021-07-27] MEDS: MULTIVITAMIN TAB PO SCH (08:47)
[2021-07-27] MEDS: ASPIRIN 81 MG ECTAB PO SCH ×2 (08:48→20:10)
[2021-07-27] MEDS: INSULIN ASPART PER UNIT SC SCH ×4 (08:54→21:52)
[2021-07-27] MEDS ORDERED: IRON SUCROSE 300 MG in SODIUM CHLORIDE 0.9% 250 ML IV ONE (11:00)
--- NOTE | 2021-07-27 16:14 | Hospitalist Progress Note ---
Date of Service July 27, 2021 Assessment & Plan (1) Postoperative fever: Plan: Exact Etiology Unclear but suspect post-op atelectasis - Last temperature spike 07/23 at 2300 of 100.04 F - Urinalysis NOT grossly infected - BC= No growth - CXR, no evidence of pneumonia - Wound- no obvious signs of infection - venous doppler of LLE- no DVT - D-dimer positive leading to CTA of the chest -no evidence of acute cardiopulmonary process - ? atelectasis-- reiterated importance of Incentive Spirometry. Pt utilizing this. - 07/25: loose stools reported but on Senokot (which has since been stopped). Loose stools improved but not resolved--C. difficile culture ordered but patient has missed that multiple times and unable to get a sample. (2) Closed left hip fracture: Plan: - pt with left femoral neck fracture s/p bipolar hemiarthroplasty pod#6 - orthopedics following, pain medications changed from oxy to tramadol per pt's request--> pain controlled; however, not utilizing anything for pain at this point - recommend hourly use of incentive spirometer for atelectasis/pna prevention - oob w/ assistance - PT/OT services--> recommending IP rehab - [facility] has accepted but awaiting authorization from insurance company. Referral to SNF in case of denial - dvt ppx: on xarelto (3) Anemia: Plan: - Preoperative hemoglobin 11.0 - Currently 9.9likely related to mild postoperative anemia - Patient is asymptomatic and hemodynamically stable - initiate iron supplementation (venofer IV today with oral iron starting tonight) -continue to Monitor labs (4) Diarrhea: Plan: - Patient empirically placed on Senokot but is not utilizing narcotics for pain - Senokot since stopped and loose stools improved but persistent - does not have a fever or leukocytosis but was febrile (unknown etiology). Not highly suspicious of C.Diff but ordered placed. So far, patient has missed the hat. Staff encouraged to assist in collection of this (5) Hypokalemia: Plan: - Likely secondary to diarrhea - Replaced - follow up labs tomorrow (6) Type 2 diabetes mellitus: Plan: - oral medications on hold - continued on her basal insulin - diabetic diet as ordered - accuchecks AC and HS (BS accetable at this time: 19 - 13 - 148 - 170 - 160) - sliding scale insulin for glycemic correction (7) Hypertension: Plan: - continue metoprolol and losartan - losartan dosing is BID and was held 07/22 AM d/t spinal anesthesia - losartan now resumed - BP has remained elevated (160-180 systolic) despite uptitrated in BB. Patient denies any reports of pain - Heart rate reamins 90s to 100s. - patient reports "always high" - still 160/98 - Increased beta-blockade further to 50mg and continue to monitor - Clonidine as needed on board with parameters (8) Depression: Plan: - continue citalopram (9) Hypothyroidism: Plan: - continue synthroid 100mcg (10) Cutaneous lupus erythematosus: Plan: - on topical steroids (11) DVT prophylaxis: Plan: - h/o breast ca and colon ca, no active malignancy to my knowledge - would recommend post op dvt ppx x 30-35 days - she is obese which puts her at increased risk - xarelto 10mg daily x 30-35 days Plan: Has been evaluated by therapy services who is recommending acute rehab. Case management consulted to help facilitate with this Patient currently medically and hemodynamically stable for discharge Plan of care to be discussed with Dr. Bermudez. Further orders as warranted. Admission and Anticipated Discharge Date Admission Date: July 21, 2021 Subjective Patient seen on daily rounds today. Vocalizes no significant complaints or concerns. Pain is adequately controlled in her left hip. Not utilizing anything for pain. Reports only "feels it" when sitting but no significant pain. Hemoglobin noted to drop slightly from 11.0-9.9. She denies fatigue/weakness, dizziness/lightheadedness, chest pain, shortness of breath. No drainage from the hip. Review of Systems Review of Systems: All systems reviewed and are unremarkable except as noted in HPI and below Denies fevers, chills, headache, nasal congestion, sore throat, cough, chest pain, shortness of breath, palpitations, orthopnea, PND, abdominal pain, nausea, vomiting, constipation, dysuria, hematuria, frequency, back pain, joint pain or swelling, easy bruising or bleeding, skin lesions or rashes. Physical Exam Physical Exam: General: Resting comfortably currently on the bedside commode. NAD. HEENT: Head is AT/NC buccal mucosa is moist and pink Neck: No JVD. Negative hepatojugular reflex Cardiac: RRR with 1/6 CIERA Lungs: CTA without W/R/R Abdomen: Normoactive X4. Soft and nontender in all quadrants. Extremities: Left hip with intact surgical dressing. Dry. Distal pulses to the bilateral lower extremities intact symmetrical. Capillary refill +2. Negative Homans' sign. No calf tenderness. Neuro: A&O X4 cranial nerves II through XII are grossly intact no focal neuro deficits Skin: No obvious skin lesions or rashes Psych: Appropriate affect pleasant and cooperative Results & Data Results & [facility] ([facility]) Vital Signs (Past 12 Hours) Vital Signs Temp Pulse Resp BP Pulse Ox 07/27/21 15:49 36.9 C 72 16 163/81 H 98 07/27/21 07:45 36.9 C 84 16 163/92 H 94 Laboratory Results 07/27/21 06:57 07/25/21 05:29 PG Care Time/CCT Total # of Minutes Spent Total Time Spent with Patient: Total time spent is greater than 50% in coordination of care (as documented) at patient's floor/unit and/or counseling patient: Coding Level of Care Code 71526 Subseq Hosp Care Lvl 2 Diagnoses Postoperative fever R50.82 Closed left hip fracture S72.002A Diarrhea R19.7 Hypokalemia E87.6 Type 2 diabetes mellitus E11.9 Hypertension I10 Depression F32.9 Hypothyroidism E03.9 Cutaneous lupus erythematosus L93.2 DVT prophylaxis Z29.9 Anemia D64.9
[2021-07-27] MEDS ORDERED: POTASSIUM CHLORIDE CRTAB 20 MEQ TABCR PO STA (16:16)
[2021-07-27] MEDS: FERROUS SULFATE 325 MG TAB PO SCH (18:08)
[2021-07-27] MEDS: LOVASTATIN 20 MG TAB PO SCH (20:09)
[2021-07-28] MEDS: ACETAMINOPHEN 500 MG TAB PO SCH ×2 (05:55→14:11)
[2021-07-28] MEDS: LEVOTHYROXINE SODIUM 100 MCG TABLET PO SCH (05:56)
[2021-07-28 08:14] LABS: Hematocrit (blood only) 31.2 % (37-47); Hemoglobin 9.6 g/dL (12.0-16.0)
[2021-07-28 08:43] LABS: BUN Creatinine Ratio 25.4 (10-20); Creatinine Clr Calc Pharmacy 99.9 ml/min; Est GFR (African American) 101.7 ml/min; Est GFR (Non-African American) 87.7 ml/min; Potassium 3.6 mmol/L (3.5-5.1)
[2021-07-28] MEDS: MULTIVITAMIN TAB PO SCH (09:05)
[2021-07-28] MEDS: ASPIRIN 81 MG ECTAB PO SCH (09:05)
[2021-07-28] MEDS: LOSARTAN POTASSIUM 50 MG TAB PO SCH (09:05)
[2021-07-28] MEDS: METOPROLOL SUCC 50MG EXT REL TAB PO SCH (09:05)
[2021-07-28] MEDS: FERROUS SULFATE 325 MG TAB PO SCH (09:05)
[2021-07-28] MEDS: GABAPENTIN 100 MG CAP PO SCH (09:05)
[2021-07-28] MEDS: RIVAROXABAN 10 MG TABLET PO SCH (09:06)
[2021-07-28] MEDS: CITALOPRAM 40 MG TAB PO SCH (09:06)
[2021-07-28] MEDS: INSULIN ASPART PER UNIT SC SCH ×2 (09:08→12:21)
--- NOTE | 2021-07-28 16:44 | Discharge Summary ---
Date of Service July 28, 2021 Admission HPI Per Admitting Provider 75-year-old female who is a transfer from [place] [facility] after evaluation of fall and left hip pain with a resultant fracture. Patient requested to come to [facility] due to previously repaired hip fracture by [facility]. Patient's pain is controlled when she is not moving. The ER evaluation suggest left femoral neck fracture. She is externally rotated and shortened with regard to her left leg. She denies any recent chest pain pressure shortness of breath feelings of palpitations or feelings of lower extremity edema. Has had no issues with increased bleeding bruising or lower extremity swelling Principal Diagnosis 1. Left hip fracture s/p left TJ 2. Postoperative feverlikely atelectasis and resolved 3. Postoperative anemiamild and stable 4. Debilitysecondary to #1 Discharge Exam General: Resting comfortably currently on the bedside commode. NAD. HEENT: Head is AT/NC buccal mucosa is moist and pink Neck: No JVD. Negative hepatojugular reflex Cardiac: RRR with 1/6 CIERA Lungs: CTA without W/R/R Abdomen: Normoactive X4. Soft and nontender in all quadrants. Extremities: Left hip with intact surgical dressing. Dry. Distal pulses to the bilateral lower extremities intact symmetrical. Capillary refill +2. Negative Homans' sign. No calf tenderness. Neuro: A&O X4 cranial nerves II through XII are grossly intact no focal neuro deficits Skin: No obvious skin lesions or rashes Psych: Appropriate affect pleasant and cooperative Discharge Data Allergies Allergy/AdvReac Type Severity Reaction Status Date / Time No Known Allergies Allergy Verified 07/21/21 15:24 Consultations 07/21/21 13:29 ED Decision to Admit Stat 07/21/21 13:47 Consult Orthopedic Surgery Stat 07/21/21 20:18 Consult Anesthesiology Routine Consult Orthopedic Surgery Routine Procedures Performed Operation Date: 07/21/21 08:20 Actual Procedures p Left Hip Bipolar Hemiarthroplasty(Left) - Christian Garcia DO Ordered Studies 07/23/21 11:00 US venous doppler LE LT Urgent IMPRESSION: There is no sonographic evidence of deep venous thrombosis identified in the left lower extremity. 07/23/21 16:54 CT angio chest PE protocol Urgent Impression: 1. No CTA evidence for pulmonary embolus. 2. No acute chest disease. 3. However, there is an 8 mm noncalcified left upper lobe pulmonary nodule and follow-up is recommended utilizing Fleischner criteria. 4. Extensive coronary artery calcification. 5. Small to moderate size hiatal hernia. Hospital Course (1) Postoperative fever: Exact Etiology Unclear but suspect post-op atelectasis - Last temperature spike 07/23 at 2300 of 100.04 F (PT HAS SINCE DEFERVESCED) - Urinalysis NOT grossly infected - BC= No growth - CXR, no evidence of pneumonia - Wound- no obvious signs of infection - venous doppler of LLE- no DVT - D-dimer positive leading to CTA of the chest -no evidence of acute cardiopulmonary process - ? atelectasis-- reiterated importance of Incentive Spirometry. Pt utilizing this. - 07/25: loose stools reported but on Senokot (which has since been stopped). Loose stools improved but not resolved--C. difficile culture ordered but patient has missed that multiple times and unable to get a sample. (2) Closed left hip fracture: - pt with left femoral neck fracture s/p bipolar hemiarthroplasty pod#7 - pt utilized Tramadol for pain (was taking this [employer]). pt requesting that the oxycodone that was ordered be stopped as "didn't like how it made her feel". Pain is controlled - PT/OT services--> recommending IP rehab - Insurance denies [facility] but approved SNF for acute rehab - dvt ppx: on xarelto x 30-35 days total - follow up with ortho 2 weeks from surgery (3) Anemia: - Preoperative hemoglobin 11.0 - Currently 9.6likely related to mild postoperative anemia - Patient is asymptomatic and hemodynamically stable - supplement iron x 30 days (venoferx1 + oral iron) - Recommend FU labs next week to trend (or sooner prn) (4) Diarrhea: - Patient empirically placed on Senokot but is not utilizing narcotics for pain - Senokot since stopped. loose stools improving - does not have a fever or leukocytosis. Not highly suspicious of C.Diff but ordered placed. Upfront was unable to get stool in the hat. Now loose stools resolved. (5) Hypokalemia: - Likely secondary to diarrhea - Replaced/ resolved (6) Type 2 diabetes mellitus: - oral antihyperglycemic agents helds while in house and utilized analog with SS and carb corrections dosing - resume Amaryl, Janumet as prior to hospitalization (7) Hypertension: - continue metoprolol and losartan - losartan dosing is BID and was held 07/22 AM d/t spinal anesthesia - losartan now resumed - BP has remained elevated (180 systolic) for which her BB was increased - BP remains elevated but improving-- Recommend house Physician FU on this, continue renal US if persistently high despite medication adjustments (8) Depression: - continue citalopram (9) Hypothyroidism: - continue synthroid 100mcg (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 Per Shlomo--> need FU CT in 6-12 months Total Time Total Time Spent Total Time Spent (In Minutes): 40 Discharge Plan Discharge Items Patient Disposition: Transfer Custodial Fac Reason For Visit: LEFT HIP FRACTURE Discharge Diagnosis: 1. Left Hip Fracture s/p LTHA 2. Post-operative Anemia- mild and stable 3. Post-operative Fever (likely related to atelectasis and resolved. No infection) Activity: Resume your previous activity Activity Comment: with continued PT/OT Weightbearing: Left weightbearing Weightbearing Comment: as tolerated with walker Non-emergency contact: Surgeon Call non-emergency contact if: you have any medication questions, your temperature is above 101.5, your wound has increased redness and your wound has increased drainage Follow-up/Referrals: Juanjo Connor MD [Primary Care Provider] - Christian Garcia DO [Surgeon] - (Follow up in 10-14 days from the day of surgery for wound check.) Diet: Carb Consistent or DM2 Addtl Attending Provider Instructions: - Patient was hospitalized after sustaining a ground level fall that resulted in a left hip fracture requiring surgical intervention - Patient had an uneventful perioperative course. She is typically very independent (lives alone and still drives) but is requiring continued rehab prior to discharge to home - I have spoken to the son who is willing to let his mother live with her for a few weeks when she is discharged from rehab (to help with that transition) - patient did have a post-op fever noted that was worked up extensively. No infection noted, no evidence of DVT/PE. With more aggressive use of her incentive spirometer, fever resolved. Suspect was related to atelectasis - for pain, patient has not required much. She requested nonnarcotic medication and was changed to Ultram - initially, was empirically placed on a bowel regimen (in conjunction with the narcotics) but was not using the narcotics and did develop loose stools that have since resolved - last: patient with mild post-operative anemia (hgb preoperative=11.0 and currently 9.6). Given IV iron infusion with recommendation for continue iron x30 days - would advise a follow up CBC next week to trend - patient is on Xarelto for DVT prophylaxis (recommend this be taken through 08/20) - while on Xarelto, would hold her routine ASA (as to avoid risk of bleeding). With resumption, can likely change from 325mg to 81mg (at discretion of house Physician/PCP) - also, patient with elevated blood pressure while in house - started on Losartan in addition to uptitration of her Metoprolol BP remains elevated but seems to be improving and more acceptable for her age. Would follow up on this and add additional medications as warranted. 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 A. Observe the following precautions to prevent dislocation: 1. Don't bend your hip greater than 90 degrees. 2. Avoid crossing your legs or ankles while standing or lying. 3. Sit with your feet placed 6 inches apart. 4. When sitting, keep your knees below your hips. Sit on a firm surface, avoid deep, soft chairs and couches. Use an elevated toilet seat in the bathroom. 5. Don't bend over at the waist. Use a long handled shoehorn and a sock aid to help you put on your shoes and socks. A grounding engineer can help you pick remover objects that are too high or too low to reach. 6. Keep car riding to a minimum for at least one month after surgery. B. Your balance may be shaky for a while. Use crutches or a walker until directed by your doctor. C. Use hand rails when walking on stairs. D. Wear low heeled shoes with non-slip soles. E. Be sure that your floors are free of things that could trip you - throw rugs, electrical cords, small objects. Avoid wet and waxed floors, especially with crutches and canes. F. Try to walk several times a day with rest periods between. G. Continue with all the exercises taught to you in the hospital. Again, make walking a part of your daily routine. SPECIAL CARE INSTRUCTIONS: VERY IMPORTANT TO READ AND REVIEW A. You may still be at risk for phlebitis and blood clots. 1. Wear surgical stockings (DIANA hose) for 2 weeks after surgery to improve circulation and reduce swelling. 2. Take Aspirin 81mg twice daily for 4 weeks or as directed by your doctor. This is your blood thinner. 3. High risk patients may be prescribed a stronger blood thinner if necessary. 4. If you are on Coumadin normally, your family doctor/wood calker should monitor your blood work. Expect a phone call the day of or the day after bloodwork is drawn to adjust your dosage. B. You must take antibiotics before having dental work, bladder, bowel and other surgery. Your doctor will provide you with a permanent card to carry describing precautions. C. Call [facility] if you have a fever, redness or swelling around the incision, cloudy drainage from incision, or sudden increase in pain in your hip, not relieved by your regular pain medication. D. Please call the office at if you have any concerns or questions about your operation or recovery. * YOU MAY SHOWER, NO TUB BATHS UNTIL CLEARED BY YOUR DOCTOR. * WEAR DIANA HOSE 20 HOURS PER DAY FOR 2 WEEKS. * YOU SHOULD USE A WALKER OR CRUTCHES FOR 2-4 WEEKS. THIS WILL HELP PREVENT STRAIN ON YOUR HIP MUSCLE AND ALLOW IT TO HEAL PROPERLY. YOU MAY WEAN TO A CANE TOLERATED. * MOST PATIENTS WILL HAVE HOME NURSING FOR THERAPY. IF YOU DECIDE TO DO OUTPATIENT PHYSICAL THERAPY, PLEASE SCHEDULE THIS 3 TIMES PER WEEK. * Silverlon- This is a large adhesive bandage that contains silver ions. This helps your incision heal by fighting off bacteria and protecting it from the outside environment. You are permitted to shower with this dressing. This will remain on your incision for 7 days and then should be removed. Some visible blood or drainage through the dressing window is normal. If there is significant drainage or leaking noted before the 7 days notify your doctor's office immediately. Once removed, keep incision clean and dry. If there is any drainage or redness noted, please call your surgeon. . FOLLOW UP VISIT: If appointment is not already scheduled: Please call [facility] to make a follow-up appointment for 2 weeks after your surgery at . Pending Studies at Discharge: No Stand-Alone Forms: My [facility], Opioid Pain Management Skilled Items Patient informed of condition?: Yes DNR: No Discharge Level of Care: Skilled Communicable Disease: No Discharge Prognosis: Stable Lines: None Urinary Catheter: No Medications and DC Order Prescriptions: New ferrous sulfate 325 mg (65 mg iron) Tablet,Delayed Release (Dr/Ec) 325 mg PO BIDM Qty: 60 RF: 0 Xarelto 10 mg Tablet 10 mg PO DAILY Qty: 23 RF: 0 metoprolol succinate 50 mg Tablet Extended Release 24 Hr 50 mg PO DAILY Qty: 30 RF: 0 losartan 100 mg tablet 100 mg PO DAILY Qty: 30 RF: 0 Continued triamcinolone acetonide 0.1 % cream 1 appln TOP BID PRN (Reason: rash) Qty: 80 RF: 5 gabapentin 100 mg capsule 100 mg PO BID Qty: 180 RF: 3 glimepiride 1 mg tablet 1 mg PO .COMPLEX Qty: 270 RF: 3 linagliptin-metformin 2.5-1,000 mg tablet 1 tab PO BID Qty: 180 RF: 3 levothyroxine 100 mcg tablet 100 mcg PO DAILY Qty: 90 RF: 3 citalopram 40 mg tablet 40 mg PO DAILY Qty: 90 RF: 3 lovastatin 20 mg tablet 20 mg PO HS Qty: 90 RF: 3 cholecalciferol (vitamin D3) 2,000 unit capsule 4,000 units PO DAILY Qty: 180 RF: 3 cyanocobalamin (vitamin B-12) 1,000 mcg tablet 1,000 mcg PO DAILY Qty: 90 RF: 3 tramadol 50 mg tablet 50 mg PO Q6H PRN (Reason: pain) Qty: 30 RF: 0 Discontinued metoprolol succinate 25 mg tablet extended release 24 hr 25 mg PO DAILY Qty: 90 RF: 3 aspirin 325 mg tablet 325 mg PO DAILY Qty: 90 RF: 3 Discharge Orders: Discharge Order (Routine); Ordered 07/28/21 Ordered By: Angelika Leone/Other Patient Handouts: Managing Type 2 Diabetes Admission Data Admit Date/Time: 07/21/21 18:43 Attending Provider: Yinka Bermudez Admit Provider: Terry Hebert Primary Care Provider: Juanjo Connor Other Providers: Christian Garcia ; Salvador Lambert ; German Comer ; [facility] ; Yinka Bermudez ; Ari Escobar [place] Other Interventions: Discharge Summary Assessment (RN) Last Done: 07/28/21 12:05 Supervising Physician Co-Signing Physician Notes I supervised Angelika Leon PA-C on the care of this patient. I interviewed and examined the patient independently of her. The plan is as written in her note except for any following changes/exceptions: None Doing well today. Not much pain. Ready for discharge per orthopedics with outpatient f/u. Coding Level of Care Code D/C DAY MANAGEMENT >30 MINS Diagnoses Postoperative fever R50.82 Closed left hip fracture S72.002A Anemia D64.9 Diarrhea R19.7 Hypokalemia E87.6 Type 2 diabetes mellitus E11.9 Hypertension I10 Depression F32.9 Hypothyroidism E03.9 Cutaneous lupus erythematosus L93.2 DVT prophylaxis Z29.[address] scan, chest R93.89
== END 2021-07-28 16:22 | DRG 522 ==
LOC: ED 13:23 → 3W 15:55 → OR 15:55 → 3W 18:43 → SUATTDRO 18:43